=== PATIENT | female | born 1970 | race Caucasian/White ===

== ENCOUNTER 2024-12-15 08:14 | Outpatient (REF) | payer BC, SELFPAY ==
--- OUTSIDE RECORDS SUMMARY | 2024-12-15 14:36 | XMS_ITS | Clinical Summary ---
Author Organization [facility] Address [address] [place] [address] Phone Care Team Providers Care Dining Room Tables Set Up Attendant Name Role Phone Martha Hood MD Primary Care Provider [phone] Allergies No known active allergies Medications Medication [...] Care Team Description 11/29/2024 Telephone Adult Medicine [address] [phone] Martha Hood MD Referral from Last 3 [...] TEETH EXTRACTION OTHER SURGICAL HISTORY 11/08/2004 PROCEDURE: [place] EXC PRTD PRIYA/PRTD GLND LAT LOBE W/O [...] LIVER DZ Other: Paternal Grandmother 70'S , ?[place] Diabetes Sister 1 Other: cancer cerv Sister [...] LES * Hepatitis C Screening (01/07/2023) Pathologist [facility] Hepatitis C Screening Abstracted Historical Provider MD LOR Matias from Last 3 Months or Most Recently Relevant to Health Maintenance Care Teams Dining Room Tables Set Up Attendant Relationship Specialty Start Date End Date Martha Hood MD [address] [place] [address] PCP - General 07/06/24
--- OUTSIDE RECORDS SUMMARY | 2024-12-15 14:36 | XMS_ITS | Encounter Summary ---
Author Organization [facility] Address [address] [place] [address] Care Team Providers Care Executive Staff Assistant Name Role Phone Martha Hood MD Primary Care Provider [phone] Reason for Visit * Reason Onset Date Comments Referral 11/29/2024 Encounter Details Date Type Department Care Team ([facility] st Contact Info) Description 11/29/2024 Telephone Adult Medicine [facility] [address] [place] [address] Martha Hood MD [address] [place] [address] Referral Social History Tobacco Use Types Packs/Day [...] the patient have today? Payor: ERASMO VALENZUELA [facility] / Plan: [facility] HMO / Product Type: *No Product type* / Referrals cannot be processed if the insurance is not accurate. If the insurance listed above in red is NO BILLING INFORMATION FOUND FOR THIS ENCOUTNER The patients correct insurance must be obtained and registered in [facility] or their referral can not be processed. [...] this visit: Initial Visit Address of Specialist: [address] [place] [address] [place] Phone # of Specialist: [phone] Fax #: (if applicable): [phone] Does patient have an appointment scheduled?: yes Date of appointment- (including a retro-request): 09/26/24 Is this appointment related to: Not MVA, worker compensation, or surgery related documented in this encounter Plan of Treatment Not on file documented as of this encounter Visit Diagnoses Not on filedocumented in this encounter Care Teams Executive Staff Assistant Relationship Specialty Start Date End Date Martha Hood MD [address] [place] [address] PCP - General 07/06/24 documented as of this encounter
[2024-12-15 15:57] LABS: Influenza A PCR NEGATIVE (Negative); Influenza B PCR NEGATIVE (Negative); Resp Syncy Virus RNA Qual PCR NEGATIVE (Negative); SARS COV2 PCR INHOUSE NEGATIVE (Negative)
== END 2024-12-15 08:15 | disposition home or self-care (01) ==
LOC: HO.LNP 08:14
PROVIDERS: PCP Physician Assistant Medical; Visit Provider Nurse Practitioner Family
DX: R09.89 Other specified symptoms and signs involving the circulatory and respiratory systems (principal); R68.89 Other general symptoms and signs; R05.8 Other specified cough
CPT/HCPCS: 0241U

== ENCOUNTER → 2024-12-15 08:14 | Outpatient (AMB) ==
--- NOTE | 2024-12-15 08:25 | AM.OFFWIN_ITS ---
Intake Vital Signs 12/15/24 08:27 Height 5 ft 2 in Weight 204 lb BMI 37.3 BP 124/72 Blood Pressure Location Lt brachial Position Sitting Pulse 115 H Pulse Source Pulse Oximeter Temp 97.5 F Temp Source Oral Pulse Oximetry (%) 98 Oxygen Delivery Method Room Air Intake Visit Reasons: Sore throat Allergies No Known Allergies Allergy (Verified 12/15/24 08:28) Medication List - Last Reconciled 12/15/24 by LEW Drake No Known Home Meds HPI HPI Comments History of Present Illness Details Mayo Parada The patient is a 54-year-old female presenting with a sore throat and ear pain. She reports that the sore throat began on Wednesday night during a trip to [place] and intensified the following day with associated sputum. Initially, there was a brief period of relief, but the sore throat recurred and has become more severe than before. She has also experienced significant chills, generalized body aches, and a sensation of congestion, particularly in the right ear, which worsened during her flight home. There is pain on swallowing, and she has developed a cough. Home remedies tried include saltwater gargles and warm tea, providing only minimal relief. Upon returning from [place], the patient's ear congestion persisted despite the use of decongestants and antihistamines. She mentions being prone to ear congestion, particularly during flights, and had previously used earplugs to manage this, which were lost during travel. She does not have a history of asthma, smoking, or allergies to medications. The patient recently had a flu vaccination. Physical Exam General: Awake, alert. No apparent distress Eyes: Sclera and conjunctiva clear bilaterally Nose: Nares patent, turbinates within normal limits, no sinus tenderness with palpation bilaterally Ears: Bilat TM intact, erythematous, bulging loss of landmarks Throat: Moist mucosa membrane, pharynx mild erythema, no exudate, uvula midline Cardiovascular: Regular rate and rhythm, heart rate slightly elevated Respiratory: Clear to auscultation bilaterally, occassional dry cough, no distress Results - Nasopharyngeal swab for flu/covid/rsv: Negative Discussion Notes I discussed with the patient the possibility that her symptoms might stem from either a flu variant, common this time of year, or a bacterial origin necessitating antibiotic therapy. Given her 's upcoming surgery, I recommended a flu test and advised waiting for those results before initiating antibiotics. If the test confirms influenza, I proposed the use of antiviral medications and possible oral steroids for ear congestion. The patient was informed about the importance of notifying her 's medical team if she tests positive for the flu, as it might eventually impact his surgery. I suggested enrolling her in our patient portal for seamless communication regarding test results. A swab was taken, and I reiterated that we would follow up with treatment contingent on the results. Patient Instructions - Wait for flu test results before start ing antibiotics. - Enroll in the patient portal for wolf nual updates. - Inform her 's surgical team if she tests positive for the flu. - Follow up with the office through the patient portal for treatment directions. Plan In response to the acute pharyngitis and otitis media, I have taken a pragmatic approach by not starting antibiotics immediately, preferring instead to await the flu swab result. If a viral etiology such as influenza is confirmed, the pl an includes administering antiviral medication alongside systemic steroids to manage ear symptoms. Should the test result be negative, bacterial infection remains a differential diagnosis, and I would initiate an antibiotic regime accordingly. Preventative measures include ensuring no cross-exposure to her who is due for surgery, and this was communicated to the patient with the importance of acting on the results expeditiously. I've emphasized the utility of the patient portal for ongoing communications and timely updates on her health status. Patient was informed and verbally consented to the use of an ambient scribe for clinic note documentation during this visit. Total time spent caring for the patient today was 30 minutes. This includes time spent before the visit reviewing the chart, time spent during the visit, and time spent after the visit on documentation, reviewing laboratory results, diagnostic imaging, medications, performing a medically necessary evaluation, counseling on diagnoses, care coordination, ordering appropriate tests, ordering appropriate medications, review of tests performed by other providers, reporting test results with the patient, communication with other healthcare providers. Portal message sent to patient at 17:35 with negative viral swab results. Augmentin and prednisone were sent to the pharmacy. Physical Exam Vital Signs: Last Vital Signs Temp 97.5 F 12/15/24 08:27 Pulse 115 H 12/15/24 08:27 BP 124/72 12/15/24 08:27 Pulse Ox 98 12/15/24 08:27 Oxygen Delivery Method Room Air 12/15/24 08:27 BMI result Body Mass Index 37.3 Assessment & Plan Assessment & Plan (1) Flu-like symptoms: Code(s): R68.89 - Other general symptoms and signs (2) Otitis media: Code(s): H66.90 - Otitis media, unspecified, unspecified ear Qualifiers: Otitis media type: suppurative Chronicity: acute Laterality: bilateral Recurrence: non-recurrent Spontaneous tympanic membrane rupture: without spontaneous rupture Qualified Code(s): H66.003 - Acute suppurative otitis media without spontaneous rupture of ear drum, bilateral Plan . Orders: Orders SARS-CoV2/FLU/RSV Today R09.89 - Other specified symptoms and signs involving the circulatory and respiratory systems, R68.89 - Other general symptoms and signs Medications: New amoxicillin-pot clavulanate 875-125 mg 1 tab PO BID 7 days 14 tabs 0RF prednisone 20 mg PO DAILY 5 tabs 0RF Coding Level of Care Code Est Pt Level 4 (66858) Diagnoses Flu-like symptoms R68.89 Non-recurrent acute suppurative otitis media of both ears without spontaneous rupture of tympanic membranes H66.003 Otitis media type: suppurative Chronicity: acute Laterality: bilateral Recurrence: non-recurrent Spontaneous tympanic membrane rupture: without spontaneous rupture
--- OUTSIDE RECORDS SUMMARY | 2024-12-15 08:32 | XMS_ITS | Clinical Summary ---
Author Organization [facility] Address [address] [place] [address] Phone Care Team Providers Care Language Translator Name Role Phone Martha Hood MD Primary Care Provider Allergies No known active allergies Medications Medication Sig Dispensed Refills Start Date End Date Status atorvastatin (LIPITOR) 20 mg tablet Take 1 Tablet by mouth daily. 07/20/2024 Active clobetasoL (TEMOVATE) 0.05 % cream To affected area 2-3 times daily for no more than 2-3 weeks, then only using on the weekends prn 01/07/2023 Active desoximetasone (TOPICORT) 0.25 % cream Apply 1 Squirt topically 2 times daily. 07/03/2021 Active omeprazole (PriLOSEC) [address] capsule Take 1 Capsule by mouth daily. 07/20/2024 Active omeprazole OTC (PriLOSEC OTC) 20 mg EC tablet Take 1 Tab by mouth daily. 02/20/2015 Active ruxolitinib (Opzelura) 1.5 % cream Apply TWICE A DAY 12/17/2023 Active multivit-min/ferrous fumarate (MULTI VITAMIN ORAL) 1 tab po qd Active calcium carbonate (CALCIUM ORAL) 1 qd Active Active Problems Problem Noted Date Diagnosed Date Hypercholesteremia 07/20/2024 Shoulder tendinitis 12/08/2016 Acromioclavicular joint arthritis 12/08/2016 GERD (gastroesophageal reflux disease) 5 Migraine 06/05/2013 Overweight 09/20/2008 Resolved Problems Problem Noted Date Diagnosed Date Resolved Date S/P hysterectomy with oophorectomy 07/16/2017 10/25/2024 Encounters Date Type Department Care Team Description 11/29/2024 Telephone Adult Medicine [address] [phone] Martha Hood MD Referral from Last 3 Months Immunizations Name Administration Dates Next Due Influenza Quadravalent, MDCK , 0.5ml, preservative free (Flucelvax) 6mo and older 01/12/2024,09/13/2019 Influenza Quadravalent, MDCK , 0.5ml, with preservative (Flucelvax) 6mo and older 07/16/2017 Influenza trivalent, 0.5mL, preservative free (Fluarix; FluLaval; Fluzone) ages 6mo and older (Afluria) 3 years and older 07/20/2024,08/03/2016,09/06/2013,2011,09/20/2008 Influenza, Unspecified 09/19/2022 Moderna SARS-CoV-2 COVID-19, mRNA, LNP-S, preservative free 09/19/2022 Td Tetanus diptheria (Tdvax) 7yo and older 10/29/2003 Td, Unspecified 10/29/2003 Tdap Tetanus diptheria acell ular pertussis (Boostrix; Adacel) 7yo and older 01/07/2023,04/11/2012 Surgical History Surgery Date Site/Laterality Comments WISDOM TOOTH EXTRACTION PROCEDURE: HISTORICAL WISDOM TEETH EXTRACTION OTHER SURGICAL HISTORY 11/08/2004 PROCEDURE: WA EXC PRTD PRIYA/PRTD GLND LAT LOBE W/O NRV DSJ; COMMENT: LEFT PAROTID MASS-ADENOMA Medical History Medical History Date Comments Other specified personal his tory presenting hazards to health(V15.89) DX:Other specifie d personal history presenting hazards to health(V15.89) Family history of ovarian cancer 06/12/2011 DX:Family history of ovarian cancer GERD (gastroesophageal reflux disease) DX:GERD (gastroesophageal reflux disease) Family History Medical History Relation Name Comments CABG Father Diabetes Father Heart attack Father AGE 38 Hypertension Father CHF Heart attack Maternal Grandfather D 92; from MRSA infection Heart attack Maternal Grandmother D 88 Hypertension Mother Ovarian cancer Mother at age 7 2 Colon cancer Mother's side great aunt Diabetes Paternal Grandfather D 50'S, ? LIVER DZ Other: Paternal Grandmother 70'S , ?[place] Diabetes Sister 1 Other: cancer cerv Sister 2 at 4 5yo from liver failure, likely a result of cancer or its treatment Breast cancer Neg Hx Uterine cancer Neg Hx Relation Name Status Comments Father Alive Maternal Grandfather Maternal Grandmother Mother (Age 72) ovarian ca ncer age 72 Mother's side Paternal Grandfather Paternal Grandmother Sister 1 Sister 2 Sister 3 cervical cancer Social History Tobacco Use Types Packs/Day Years Used Date Smoking Tobacco: Never Smokeless Tobacco: Never Alcohol Use Standard Drinks/Week Comments Yes 0 (1 standard drink = 0.6 oz pur e alcohol) Sex and Gender Information Value Date Recorded Sex Assigned at Not on file Gender Identity Not on file Sexual Orientation Not on file Obstetrics History Last Filed Vital Signs Vital Sign Reading Time Taken Comments Blood Pressure 134/88 07/20/2024 9:24 AM EDT Pulse 76 07/20/2024 9:24 AM EDT Temperature - - Respiratory Rate - - Oxygen Saturation - - Inhaled Oxygen Concentration - - Weight 93.5 kg (206 lb 3.2 oz) 07/20/2024 9:24 A M EDT Height 157.5 cm (5' 2 ) 07/20/2024 9:24 AM EDT Body Mass Index 37.71 07/20/2024 9:24 AM EDT Plan of Treatment Health Maintenance Due Date Last Done Comments Breast Cancer Screening 1970 Hepatitis B Vaccines (1 of 3 - 19+ 3-dose series) 1989 Zoster Vaccines (1 of 2) 2020 Colorectal Cancer Screening: Colonoscopy 10/17/2022 Depression Screening 10/17/2022 HIV Screening 10/17/2022 Social Influencers of Health Screening 10/17/2022 COVID-19 Vaccine ( season) 2024 09/19/2022, 03/31/2021, 03/03/2021 Cholesterol Screening (Lipid Panel) 07/20/2029 07/20/2024, 07/20/2024 DTaP,Tdap,and Td Vaccines (5 - Td or Tdap) 01/07/2033 01/07/2023, 04/11/2012, 10/29/2003, Additional history exists Hepatitis C Screening Completed 01/07/2023 Influenza Vaccine Completed 07/20/2024, , 09/19/2022, Additional history exists HIB Vaccines Aged Out No longer eligi ble based on patient's age to complete this topic HPV Vaccines Aged Out No longer eligi ble based on patient's age to complete this topic Hepatitis A Vaccines Aged Out No long er eligible based on patient's age to complete this topic IPV Vaccines Aged Out No longer eligi ble based on patient's age to complete this topic MMR Vaccines Aged Out No longer eligi ble based on patient's age to complete this topic Meningococcal ACWY Vaccine Aged Out N o longer eligible based on patient's age to complete this topic Pneumococcal Vaccine: Pediatrics (0 to 5 Years) and At-Risk Patients (6 to 64 Years) Aged Out No longer eligible based on patient's age to complete this topic RSV Immunization Patients Under 20 months Aged Out No longer eligible based on patient's age to complete this topic Varicella Vaccines Aged Out No longer eligible based on patient's age to complete this topic Procedures Procedure Name Priority Date/Time Associated Diagnosis Comments LIPID PANEL Routine 07/20/2024 HEPATITIS C SCREENING Routine 01/07/2023 from Last 3 Months or Most Recently Relevant to Health Maintenance Results * (ABNORMAL) Lipid panel (07/20/2024) LDL/HDL Ratio 4 0 - 4 Triglycerides 144 0 - 150 mg/dL Cholesterol 225(A) 0 - 200 mg/dL HDL 65 40 mg/dL LDL Cholesterol 132(A) 0 - 100 mg/dL Blood Venous blood specimen / Unknown Historical Provider LAB BLOOD ORDERAB LES * Hepatitis C Screening (01/07/2023) Pathologist [facility] Hepatitis C Screening Abstracted Historical Provider MD LOR Matias from Last 3 Months or Most Recently Relevant to Health Maintenance Care Teams Language Translator Relationship Specialty Start Date End Date Martha Hood MD [address] [place] [address] PCP - General 07/06/24
--- OUTSIDE RECORDS SUMMARY | 2024-12-15 08:32 | XMS_ITS | Encounter Summary ---
Author Organization [facility] Address [address] [place] [address] Care Team Providers Care Garnetter Name Role Phone Martha Hood MD Primary Care Provider [phone] Reason for Visit * Reason Onset Date Comments Referral 11/29/2024 Encounter Details Date Type Department Care Team ([facility] st Contact Info) Description 11/29/2024 Telephone Adult Medicine [facility] [address] [place] [address] Martha Hood MD [address] [place] [address] Referral Social History Tobacco Use Types Packs/Day Years Used Date Smoking Tobacco: Never Smokeless Tobacco: Never Alcohol Use Standard Drinks/Week Comments Yes 0 (1 standard drink = 0.6 oz pur e alcohol) Sex and Gender Information Value Date Recorded Sex Assigned at Not on file Gender Identity Not on file Sexual Orientation Not on file documented as of this encounter Progress Notes * Yumiko Corbett - 11/29/2024 3:23 PM EST Referral Request: What insurance does the patient have today? Payor: ERASMO VALENZUELA [facility] / Plan: [facility] HMO / Product Type: *No Product type* / Referrals cannot be processed if the insurance is not accurate. If the insurance listed above in red is NO BILLING INFORMATION FOUND FOR THIS ENCOUTNER The patients correct insurance must be obtained and registered in [facility] or their referral can not be processed. Is this a retro request? yes If yes for what date of service do you need the retro referral? 09/26/24 Who is calling to request this referral? [facility] If the caller is not the patient, what is their name? agnes Ask the patient WHO referred them to this specialty: Patient self referred FIRST and LAST NAME of SPECIALIST PATIENT is seeing: Freddy Abdi What specialty is this? Optemology DIAGNOSIS Patient is being seen for (Not a body part or a procedure): 40.013 Have you seen this SPECIALIST for this PROBLEM/DX before? If YES, when? No Have you checked REVIEW or the APPT DESK to see if this referral has already been done or has visits left? yes Is this visit: Initial Visit Address of Specialist: [address] [place] [address] [place] re[place] Phone # of Specialist: [phone] Fax #: (if applicable): [phone] Does patient have an appointment scheduled?: yes Date of appointment- (including a retro-request): 09/26/24 Is this appointment related to: Not MVA, worker compensation, or surgery related documented in this encounter Plan of Treatment Not on file documented as of this encounter Visit Diagnoses Not on filedocumented in this encounter Care Teams Garnetter Relationship Specialty Start Date End Date Martha Hood MD [address] [place] [address] PCP - General 07/06/24 documented as of this encounter
== END | disposition home or self-care (01) ==

== ENCOUNTER 2024-12-18 11:56 | Outpatient (AMB) | payer BC, SELFPAY ==
[2024-12-18 12:02] VITALS: BP 136/88; PULSE 85; O2SAT 95; BMI 37.9
--- NOTE | 2024-12-18 12:02 | MHC.PC.OV ---
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 She transferred from [facility]. Records transfer still pending. The patient was seen at the walk-in on 12/15/2024. Influenza/RSV/COVID swab negative. Patient currently Augmentin and prednisone for otitis media. This all started after she flew back from [place], and she said she was congested before travel. She usually uses a device that blocks her ears, but she lost it during travel. She initially reported hearing was muffled, but this has since resolved. Her ears are still heard a and congested, but she feels a little better since starting the medications 3 days ago. She has no fevers, chills, hearing loss, dizziness, vision changes or headache. She is treated for GERD with omeprazole 20 mg daily. Symptoms return if she does not take this medication. She wants to try to work on weight loss to reduce symptoms. She takes 20 mg of atorvastatin for hyperlipidemia. LDL cholesterol in 07/28/2024 was 132. There is a strong family history of heart disease on her father's side of the family. She does not smoke. She has not been able to exercise due to chronic right ankle pain. She broke her ankle and dislocated it in 2017. She was seen by [facility]. She has hardware in her ankle. She has had progressively worsening pain described as singing and aching when she is walking, standing and using stairs. She also has intermittent swelling on the inside and outside of the ankle at improves when she uses topical CBD products. She tries not to take Tylenol and Advil. There is no numbness or tingling or weakness reported. She has tried to exercise as tolerated and follow a healthy diet, but she has not been able to lose weight successfully over the past year. Denies history of diabetes/prediabetes and thyroid disease. She would like to try GLP 1. She is due for mammogram. Order placed. She had a colonoscopy in the fall of 2023, and she reports there were a few polyps, and she was told to repeat it in 5 years. She is status post total hysterectomy. She would still like to see ship's electronic warfare officer for vaginal and breast exams. She is going to call Dr. Umana's office, and I placed a referral. Her last annual physical exam was in 07/28/2024. ROS: Constitutional: No unexplained weight loss, fever, chills, fatigue or night sweats. Eyes: No vision changes, blurry vision, double vision, eye pain, eye redness, eye discharge. ENT: No hearing loss, sinus pain, sinus congestion, sore throat. See HPI Respiratory: No shortness of breath or wheezing. +cough. No sputum production. Cardiovascular: No chest pain, chest pressure or chest discomfort. No palpitations. Gastrointestinal: No anorexia, nausea, vomiting or diarrhea. No abdominal pain or blood in stool. Neurologic: No weakness, ataxia, numbness or tingling in the extremities. Musculoskeletal: See HPI Skin: No rash, ecchymosis or bruising. Endocrine: No cold or heat intolerance. No polyuria or polydipsia. Psychiatric: No depression or anxiety. No SI/HI. Physical exam: Constitutional: Alert, in no distress. Eyes: Pupils are equal, round and reactive to light. Extraocular muscles intact. Ear, Nose and Throat: Canals clear. The TMs are hyperemic and dull. There is a small serous fluid bubble at the base of the right TM. There is no left TM effusion. The TMs are intact. Normal nasal mucosa. No nasal discharge. No oropharyngeal erythema, exudates or lesions. Mastoids nontender. Negative tug test bilaterally. Neck: Supple, Full range of motion. No lymphadenopathy. Respiratory: Clear to auscultation. Cardiovascular: S1 S2 regular. No murmurs Skin: No rash Ankles: Full range of motion bilaterally. Strength 5/5 bilaterally. There is mild swelling around the lateral and medial malleoli of the right ankle, and these areas are mildly tender to palpation. Gait is normal. No ecchymosis or erythema. Extremities: Warm and well perfused. No clubbing, cyanosis or edema. 3+ peripheral pulses bilaterally. Psychiatric: Normal mood and affect [facility] Medical History (Updated 12/18/24 @ 13:42 by JOVITA Crowley) Colon polyps GERD (gastroesophageal reflux disease) Obesity (BMI 35.0-39.9 without comorbidity) Right ankle pain Pure hypercholesterolemia Screening for cardiovascular condition Surgical History (Updated 12/18/24 @ 12:11 by Coco Teresa CMA) H/O total hysterectomy with bilateral salpingo-oophorectomy (BSO) (~2017) History of wisdom tooth extraction Family History (Updated 12/18/24 @ 12:16 by Coco Teresa CMA) Mother Ovarian cancer Sister Cervical cancer Paternal Grandfather Diabetes Maternal Grandmother Heart attack Maternal Grandfather Heart attack MRSA infection Maternal Grandmother Colon cancer Father Congestive heart failure Social History (Updated 12/18/24 @ 12:17 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 1. Little interest or pleasure in doing things: not at all 2. Feeling down, depressed, or hopeless: not at all 3. Trouble falling or staying asleep, or sleeping too much: not at all 4. Feeling tired or having little energy: not at all 5. Poor appetite or overeating: not at all 6. Feeling bad about yourself - or that you are a failure or have let yourself or your family down: not at all 7. Trouble concentrating on things, such as reading the newspaper or watching television: not at all 8. Moving or speaking so slowly that other people could have noticed. Or the opposite - being so fidgety or restless that you have been moving around a lot more than usual: not at all 9. Thoughts that you would be better off or of hurting yourself in some way: not at all Total score: 0 Depression Screening Interpretation: Negative Depression Screening Done: Yes 11799 - PHQ-9 Billing: Yes Source: Developed by Drs. Mina Collado, Renata Andre, Faraz Armijo and colleagues, with an educational adeola from [employer]. Thrive Questionnaire Date Thrive assessed: 12/18/24 I am a: Patient What is your living situation today?: I have a steady place to live Within the past 12 months, did the food you bought not last and you didn't have the money to get more?: Never true Within the past 12 months, did you worry whether your food would run out before you got money to buy more?: Never true Do you have trouble paying for medicines?: No Do you have trouble getting transportation to medical appointments?: No Do you have trouble paying your heating and electricity bill?: No Do you have trouble taking care of your child, family member or friend?: No Do you have trouble with day-to-day activities such as bathing, preparing meals, shopping, managing finances, etc.?: No Are you currently unemployed and looking for a job?: No Are you interested in more education?: No Please select the resources that you would like help with: None Currently or been in a relationship where the following occur: No concerns reported THRIVE Score: 0 AUDIT C Alcohol Use Questionnaire (AUDIT-C) 1. How often do you have a drink containing alcohol?: Monthly or less 2. How many drinks containing alcohol do you have on a typical day when you are drinking?: 1 or 2 3. How often do you have six or more drinks on one occasion?: Never Total Score: 1 DESHAWN-7 AMB Questionnaire DESHAWN-7 Date DESHAWN - 7 assessed: 12/18/24 Feeling nervous, anxious, or on edge: 0 = Not at all Not being able to stop or control worryin = Not at all Worrying too much about different things: 0 = Not at all Trouble relaxin = Not at all Being so restless that it is hard to sit still: 0 = Not at all Becoming easily annoyed or irritable: 0 = Not at all Feeling afraid as if something awful might happen: 0 = Not at all Total DESHAWN-7 score (0-4 normal; 5-9 mild; 10-14 moderate; 15-21 severe): 0 Source: Developed by Drs. Mina Collado, Renata Andre, Faraz Armijo and colleagues, with an educational adeola from [employer]. DESHAWN-7 Assessment Billing DESHAWN-7 Assessment Tool: DESHAWN-7 Assessment 56611 Physical exam (Primary Care) Vital Signs: Last Vital Signs Pulse 85 12/18/24 12:02 BP 136/88 12/18/24 12:02 Pulse Ox 95 12/18/24 12:02 Oxygen Delivery Method Room Air 12/18/24 12:02 BMI result Body Mass Index 37.9 Tobacco/Smoking Status: Tobacco use Status Tobacco use date assessed 12/18/24 12/18/24 12:18 Patient Tobacco Use Status Never used Tobacco 12/18/24 12:18 e-Cigarette/Vaping Use Never Used 12/18/24 12:18 PHQ-9: PHQ-9 Score PHQ-9: Total score 0 12/18/24 12:18 Depression Screening Interpretation: Negative Thrive Assessment: Date of Thrive Assessment Date Thrive assessed 12/18/24 12/18/24 12:18 Currently or been in a relationship where the following occur: No concerns reported Coding Level of Care Code Est Pt Level 5 (10843) Complex EM visit Add On G2211 Diagnoses Non-recurrent acute suppurative otitis media of both ears without spontaneous rupture of tympanic membranes H66.003 Otitis media type: suppurative Chronicity: acute Laterality: bilateral Recurrence: non-recurrent Spontaneous tympanic membrane rupture: without spontaneous rupture Pure hypercholesterolemia E78.00 Obesity (BMI 35.0-39.9 without comorbidity) E66.9 Right ankle pain M25.571 Additional Codes DESHAWN-7 Assessment Billing - DESHAWN-7 Assessment Tool: DESHAWN-7 Assessment 01139 ([id number]) PHQ-9 - 32975 - PHQ-9 Billing: Yes ([id number]) Time Spent (min) 55 Comment Direct patient care and completing chart Assessment & Plan Assessment & Plan (1) Otitis media: Code(s): H66.90 - Otitis media, unspecified, unspecified ear Category: Medical Qualifiers: Otitis media type: suppurative Chronicity: acute Laterality: bilateral Recurrence: non-recurrent Spontaneous tympanic membrane rupture: without spontaneous rupture Qualified Code(s): H66.003 - Acute suppurative otitis media without spontaneous rupture of ear drum, bilateral Plan: Complete courses of prednisone and Augmentin. Use cool mist humidifier, rest and increase fluids. Patient asked to call if she experiences any hearing loss or worsening symptoms. If symptoms do not resolve following treatment she was instructed to call the office. (2) Pure hypercholesterolemia: Code(s): E78.00 - Pure hypercholesterolemia, unspecified Category: Medical Plan: Check lipid profile to determine if dose of atorvastatin needs to be adjusted. Recommended Mediterranean diet, avoid tobacco use, avoid excessive alcohol. She is working on weight loss. (3) Obesity (BMI 35.0-39.9 without comorbidity): Code(s): E66.9 - Obesity, unspecified Category: Medical Plan: Patient has not been able to lose weight despite implementing lifestyle modifications for over 3 months, and she has a history of hyperlipidemia and BMI of 37.9 today. We reviewed contraindications and side effects of GLP 1 medications. She would like to try it. Patient was advised to contact her insurance to see if they cover Zepbound for weight loss. If they do she will let me know so that I can submit the prescription, and she was advised it will require prior authorization. (4) Right ankle pain: Code(s): M25.571 - Pain in right ankle and joints of right foot Category: Medical Plan: Chronic right ankle pain with history of trauma and surgery in 2017. Referred back to [facility] for re-evaluation. Plan Follow up in 3 months for medication review. Orders: Orders TSH reflex Free T4 Today E66.9 - Obesity, unspecified, E78.00 - Pure hypercholesterolemia, unspecified, Z13.6 - Encounter for screening for cardiovascular disorders Comprehensive Met. Panel Today E66.9 - Obesity, unspecified, E78.00 - Pure hypercholesterolemia, unspecified, Z13.6 - Encounter for screening for cardiovascular disorders MM screening mammo BI Today Z12.31 - Encounter for screening mammogram for malignant neoplasm of breast Lipid Panel Today E66.9 - Obesity, unspecified, E78.00 - Pure hypercholesterolemia, unspecified, E78.5 - Hyperlipidemia, unspecified, Z13.6 - Encounter for screening for cardiovascular disorders Referrals INTERNAL CONSULTANT Referral Z00.00 - Encounter for general adult medical examination without abnormal findings Orthopedics Referral M25.571 - Pain in right ankle and joints of right foot Medications: New atorvastatin 20 mg PO DAILY 90 tabs 3RF
--- OUTSIDE RECORDS SUMMARY | 2024-12-18 13:12 | XMS_ITS | Clinical Summary ---
Author Organization [facility] Address [address] [place] [address] Phone Care Team Providers Care Billing And Accounting Staff Assistant Name Role Phone Martha Hood MD Primary Care Provider Allergies No known active allergies Medications atorvastatin (LIPITOR) 20 mg tablet Take 1 Tablet by mouth daily. 4 Active clobetasoL (TEMOVATE) 0.05 % cream To affected area 2-3 times daily for no more than 2-3 weeks, then only using on the weekends prn 3 Active desoximetasone (TOPICORT) 0.25 % cream Apply 1 Squirt topically 2 times daily. 1 Active omeprazole (PriLOSEC) [address] capsule Take 1 Capsule by mouth daily. 4 Active omeprazole OTC (PriLOSEC OTC) 20 mg EC tablet Take 1 Tab by mouth daily. 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 GERD (gastroesophageal reflux disease) 5 Migraine 06/05/2013 Overweight 09/20/2008 Resolved Problems Problem Noted Date Diagnosed Date Resolved Date S/P hysterectomy with oophorectomy 07/16/2017 10/25/2024 Encounters Date Type Department Care Team Description 11/29/2024 Telephone Adult Medicine [address] [address] Martha Hood MD Referral from Last 3 [...] TEETH EXTRACTION OTHER SURGICAL HISTORY 11/08/2004 PROCEDURE: NV EXC PRTD PRIYA/PRTD GLND LAT LOBE W/O [...] LIVER DZ Other: Paternal Grandmother 70'S , ?[place] Diabetes Sister 1 Other: cancer cerv Sister [...] drink = 0.6 oz pur e alcohol) Comments Unknown Sex and Gender Information Value Date Recorded Sex Assigned at Not on file Legal Sex Female 11:26 AM EST Gender Identity Not on file Sexual Orientation [...] of 3 - 19+ 3-dose series) 1989 Pneumococcal Vaccine: 50+ Years (1 of 1 - PCV) 2020 Zoster Vaccines (1 of 2) 2020 Colorectal Cancer Screening: Colonoscopy 10/17/2022 Depression Screening 10/17/2022 HIV Screening 10/17/2022 Social Influencers of Health Screening 10/17/2022 COVID-19 Vaccine ( season) 2024 09/19/2022, 03/31/2021, 03/03/2021 Cholesterol Screening (Lipid Panel) 07/20/2029 07/20/2024, 07/20/2024 DTaP,Tdap,and Td Vaccines (4 - Td or Tdap) 01/07/2033 01/07/2023, 04/11/2012, [...] patient's age to complete this topic Meningococcal B Vacine Aged Out No lo nger eligible based on patient's age to complete [...] 225(A) 0 - 200 mg/dL HDL 65 >=40 mg/dL LDL Cholesterol 132(A) 0 - 100 mg/dL Blood Venous blood specimen / Unknown Historical Provider LAB BLOOD ORDERABLES Carolyn l Result * Hepatitis C Screening (01/07/2023) Pathologist On license of [facility] Hepatitis C Screening Abstracted us Historical Provider HEALTH MAINTENANCE Final Result from Last 3 Months or Most Recently Relevant to Health Maintenance Insurance [facility] Care Teams Billing And Accounting Staff Assistant Relationship Specialty Start Date End Date Martha Hood MD [address] [place] [address] PCP - General 07/06/24
--- OUTSIDE RECORDS SUMMARY | 2024-12-18 13:12 | XMS_ITS | Encounter Summary ---
Author Organization [facility] Address [address] [place] [address] Care Team Providers Care Bench Inspector Name Role Phone Martha Hood MD Primary Care Provider [phone]- [phone] Reason for Visit * Reason Onset Date Comments Referral 11/29/2024 Encounter Details Date Type Department Care Team ([facility] st Contact Info) Description 11/29/2024 Telephone Adult Medicine [facility] [address] [place] [address] Martha Hood MD [address] [place] [address] Referral Social History Tobacco Use Types Packs/Day [...] of this encounter Progress Notes * Yumiko Colon - 11/29/2024 3:23 PM EST Referral Request: What insurance does the patient have today? Payor: ERASMO VALENZUELA - [place] / Plan: [facility] HMO / Product Type: *No Product type* / Referrals cannot be processed if the insurance is not accurate. If the insurance listed above in red is NO BILLING INFORMATION FOUND FOR THIS ENCOUTNER The patients correct insurance must be obtained and registered in [facility] or their referral can not be processed. [...] this visit: Initial Visit Address of Specialist: [address] [place] [address] [place] Phone # of Specialist: [phone] Fax #: (if applicable): [phone] Does patient have an appointment scheduled?: yes Date of appointment- (including a retro-request): 09/26/24 Is this appointment related to: Not MVA, worker compensation, or surgery related documented in this encounter Plan of Treatment Not on file documented as of this encounter Visit Diagnoses Not on filedocumented in this encounter Care Teams Bench Inspector Relationship Specialty Start Date End Date Martha Hood MD [address] [place] [address] PCP - General 07/06/24 documented as of this encounter
== END 2024-12-18 13:01 | disposition home or self-care (01) ==
PROVIDERS: PCP Physician Assistant Medical; Visit Provider Physician Assistant Medical
DX: E78.00 Pure hypercholesterolemia, unspecified (principal); H66.003 Acute suppurative otitis media without spontaneous rupture of ear drum, bilateral; E66.9 Obesity, unspecified; Z68.37 Body mass index [BMI] 37.0-37.9, adult; M25.571 Pain in right ankle and joints of right foot

== ENCOUNTER → 2024-12-18 11:56 | Outpatient (BNVA) | payer BC, SELFPAY | PROVIDERS: PCP Physician Assistant Medical; Visit Provider Physician Assistant Medical | DX: E78.5 Hyperlipidemia, unspecified (principal); E66.9 Obesity, unspecified; H66.003 Acute suppurative otitis media without spontaneous rupture of ear drum, bilateral; E78.00 Pure hypercholesterolemia, unspecified; M25.571 Pain in right ankle and joints of right foot; Z68.37 Body mass index [BMI] 37.0-37.9, adult | CPT/HCPCS: 96127 ==

== ENCOUNTER 2025-01-05 14:08 | Outpatient (REF) | payer BC, SELFPAY ==
--- OUTSIDE RECORDS SUMMARY | 2025-01-05 16:19 | XMS_ITS | Encounter Summary ---
Author Organization [facility] Address [address] [place] [address] Care Team Providers Care Track Patrol Name Role Phone Mirela Verduzco MD Primary Care Provider [phone]- [phone] Reason for Referral * Consultation (Routine) - Pending Review Specialty Diagnoses / Procedures Referred By Leena hussein Referred To Contact Optometry Diagnoses Eye exam, routine Mirela Verduzco MD [address] [place] [address] Phone: tel: fax: Freddy Abdi, OD [address] [facility] [address] [place] [address] Phone: tel: fax: Referral ID Status Reason Start Date Expiration Date Visits Requested Visits Authorized [id number] Pending Review Specialty Services Required 12/21/2024 12/21/2025 1 1 Reason for Visit * Reason Onset Date Comments Referral 11/29/2024 Encounter Details Date Type Department Care Team (Late st Contact Info) Description 11/29/[address] [facility] [address] [place] [address] Mirela Verduzco MD [address] [place], [place] Referral Social History Tobacco Use Types Packs/Day [...] as of this encounter Progress Notes * Mirela Verduzco MD - 12/21/2024 12:24 PM ESTAddended by: MIRELA VERDUZCO on: 12/21/2024 12:24 PM Modules accepted: Orders * Yumiko Corbett - 11/29/2024 3:23 PM EST Referral Request: What insurance does the patient have today? Payor: ERASMO Sy [place] / Plan: [facility] HMO / Product Type: *No Product type* / Referrals cannot be processed if the insurance is not accurate. If the insurance listed above in red is NO BILLING INFORMATION FOUND FOR THIS ENCOUTNER The patients correct insurance must be obtained and registered in [facility] or their referral can not be processed. Is this a retro request? yes If yes for what date of service do you need the retro referral? 09/26/24 Who is calling to request this referral? [facility] If the caller is not the patient, what is their name? oleen Ask the patient WHO referred them to [...] this visit: Initial Visit Address of Specialist: [address] [place] [address] [place] Phone # of Specialist: [phone] Fax #: (if applicable): [phone] Does patient have an appointment scheduled?: yes Date of appointment- (including a retro-request): 09/26/24 Is this appointment related to: Not MVA, worker compensation, or surgery related documented in this encounter Plan of Treatment Scheduled Referrals Name Type Priority Associated Diagnoses Order Schedule Ambulatory referral to Ophthalmology Outpatient Referral Routine Eye exam, routine 1 Occurrences starting 12/21/2024 until 12/21/2025 documented as of this encounter Visit Diagnoses Diagnosis Eye exam, routine- Primary documented in this encounter Care Teams Track Patrol Relationship Specialty Start Date End Date Mirela Verduzco MD [address] [place] [address] PCP - General 07/06/24 documented as of this encounter
--- OUTSIDE RECORDS SUMMARY | 2025-01-05 16:19 | XMS_ITS | Clinical Summary ---
Author Organization [facility] Address [address] [place] [address] Phone Care Team Providers Care Plug Cutting Machine Operator Name Role Phone Martha Hood MD Primary [...] Care Team Description 11/29/2024 Telephone Adult Medicine [address] [address] Martha Hood MD Referral from [...] TEETH EXTRACTION OTHER SURGICAL HISTORY 11/08/2004 PROCEDURE: RI EXC PRTD PRIYA/PRTD GLND LAT LOBE W/O [...] LIVER DZ Other: Paternal Grandmother 70'S , ?[place] Diabetes Sister 1 Other: cancer cerv Sister [...] Result * Hepatitis C Screening (01/07/2023) Pathologist [facility] Hepatitis C Screening Abstracted us Historical Provider HEALTH MAINTENANCE Final Result from Last 3 Months or Most Recently Relevant to Health Maintenance Insurance [facility] Care Teams Plug Cutting Machine Operator Relationship Specialty Start Date End Date Martha Hood MD [address] [place] [address] PCP - General 07/06/24
[2025-01-05 18:19] LABS: Alanine Aminotransferase 41 U/L (0-31); Albumin Level 4.2 g/dL (3.5-5.0); Alkaline Phosphatase 86 U/L (39-117); Anion Gap 13 (12-20); Aspartate Amino Transferase 27 U/L (5-31); Bilirubin Total 0.5 mg/dL (0.0-1.0); Blood Urea Nitrogen 13 mg/dL (9-16); Calcium 9.5 mg/dL (8.4-10.2); Carbon Dioxide 24 mmol/L (22-29); Chloride 105 mmol/L (96-108); Cholesterol 209 mg/dL (<200); Estimated Glomerular Filt Rate > 60; Glucose Random 88 mg/dL (60-115); HDL Cholesterol 62 mg/dL (>40); LDL Cholesterol Calculated 127 mg/dL (<100); Potassium 3.8 mmol/L (3.3-5.1); Sodium 138 mmol/L (135-145); Total Protein 7.9 g/dL (6.5-8.0); Triglycerides 102 mg/dL (<150)
[2025-01-05 18:35] LABS: TSH reflex Free T4 1.21 uIU/mL (0.32-4.0)
== END 2025-01-05 14:09 | disposition home or self-care (01) ==
LOC: HO.WFDLDS 14:08
PROVIDERS: Visit Provider Physician Assistant Medical
DX: E78.00 Pure hypercholesterolemia, unspecified (principal); E78.5 Hyperlipidemia, unspecified; E66.9 Obesity, unspecified; Z13.6 Encounter for screening for cardiovascular disorders
CPT/HCPCS: 36415; 80053; 80061; 84443

== ENCOUNTER 2025-01-29 15:14 | Outpatient (REF) | payer BC, SELFPAY ==
--- OUTSIDE RECORDS SUMMARY | 2025-01-29 18:05 | XMS_ITS | Clinical Summary ---
Author Organization [facility] Address [address] [place] [address] Phone Care Team Providers Care Tearoom Hostess Name Role Phone Martha Hood MD Primary [...] Care Team Description 11/29/2024 Telephone Adult Medicine [address] [address] Martha Hood MD Referral from [...] TEETH EXTRACTION OTHER SURGICAL HISTORY 11/08/2004 PROCEDURE: DC EXC PRTD PRIYA/PRTD GLND LAT LOBE W/O [...] LIVER DZ Other: Paternal Grandmother 70'S , ?[place] Diabetes Sister 1 Other: cancer cerv Sister [...] C Screening (01/07/2023) Pathologist [facility] Hepatitis C Screening Abstracted us Historical Provider HEALTH MAINTENANCE Final Result from Last 3 Months or Most Recently Relevant to Health Maintenance Insurance [facility] Care Teams Tearoom Hostess Relationship Specialty Start Date End Date Martha Hood MD [address] [place] [address] PCP - General 07/06/24
== END 2025-01-29 15:15 | disposition home or self-care (01) ==
LOC: HO.MAMMO 15:14
PROVIDERS: PCP Physician Assistant Medical; Visit Provider Physician Assistant Medical
DX: Z12.31 Encounter for screening mammogram for malignant neoplasm of breast (principal)
CPT/HCPCS: 77063; 77067

== ENCOUNTER → 2025-01-29 15:30 | Outpatient (BNV) | payer BC, SELFPAY | PROVIDERS: PCP Physician Assistant Medical; Visit Provider Internal Medicine | DX: Z12.31 Encounter for screening mammogram for malignant neoplasm of breast (principal) | CPT/HCPCS: 77063; 77067 ==

== ENCOUNTER 2025-03-16 14:12 | Outpatient (REF) | payer BC, SELFPAY ==
--- OUTSIDE RECORDS SUMMARY | 2025-03-16 14:14 | XMS_ITS | Encounter Summary ---
Author Organization [facility] Address [address] [place] [address] Care Team Providers Care Oyster Farmer Name Role Phone Sanjuanita Bhandari MD Primary Care Provider Un available Zehra Evans DO Primary Care Provider Unavaila ble Martha Hood MD Primary Care Provider [phone] Encounter Details Date Type Department Care Team Description 05/26/2012 Storage Engineer Report Medical Records [address] [place] [address] Misael Hernandez Social History Tobacco Use Types Packs/Day Years Used Date Smoking Tobacco: Never Smokeless Tobacco: Never Alcohol Use Standard Drinks/Week Comments Yes 0 (1 standard drink = 0.6 oz pur e alcohol) occasional, social Sex Assigned at Date Recorded Not on file Job Start Date Occupation Industry Not on file Not on file Not on file documented as of this encounter Plan of Treatment Not on file documented as of this encounter Visit Diagnoses Not on filedocumented in this encounter Care Teams Oyster Farmer Relationship Specialty Start Date End Date Sanjuanita Bhandari MD PCP - General 09/26/07 03/25/22 Zehra Evans DO PCP - General Internal Medicine 03/26/22 07/05/24 Martha Hood MD [address] [place] [address] PCP - General Internal Medicine 07/06/24 documented as of this encounter
--- OUTSIDE RECORDS SUMMARY | 2025-03-16 14:14 | XMS_ITS | Encounter Summary ---
Author Organization [facility] Address [address] [place] [address] Care Team Providers Care Exhibition Carver Name Role Phone Sanjuanita Bhandari MD Primary Care Provider Un available Zehra Evans DO Primary Care Provider Unavaila ble Martha Hood MD Primary Care Provider [phone] Encounter Details Date Type Department Care Team Description 05/15/2019 Blueprint Reproducer Report Medical Records [address] [place] [address] Yusuf Greene MD Social History Tobacco Use Types Packs/Day Years Used Date Smoking Tobacco: Never Smokeless Tobacco: Never Alcohol Use Standard Drinks/Week Comments Yes 0 (1 standard drink = 0.6 oz pur e alcohol) 2-3 drinks/mo Sex Assigned at Date Recorded Not on file Job Start Date Occupation Industry Not on file Not on file Not on file documented as of this encounter Plan of Treatment Not on file documented as of this encounter Visit Diagnoses Not on filedocumented in this encounter Care Teams Exhibition Carver Relationship Specialty Start Date End Date Sanjuanita Bhandari MD PCP - General 09/26/07 03/25/22 Zehra Evans DO PCP - General Internal Medicine 03/26/22 07/05/24 Martha Hood MD [address] [place] [address] [id number] PCP - General Internal Medicine 07/06/24 documented as of this encounter
--- OUTSIDE RECORDS SUMMARY | 2025-03-16 14:14 | XMS_ITS | Encounter Summary ---
Author Organization [facility] Address [address] [place] [address] Care Team Providers Care Sourcing Intern Name Role Phone Zehra Evans DO Primary Care Provider Martha Hernandez MD Primary Care Provider [phone] Encounter Details Date Type Department Care Team Description 10/20/2023 Orders Only Medical Records [address] [place] [address] Lissette Luna MD [address] [place] [address] Social History Tobacco Use Types Packs/Day Years Used Date Smoking Tobacco: Never Smokeless Tobacco: Never Alcohol Use Standard Drinks/Week Comments Yes 0 (1 standard drink = 0.6 oz pur e alcohol) 2-3 drinks/mo Sex Assigned at Date Recorded Not on file Job Start Date Occupation Industry Not on file Not on file Not on file documented as of this encounter Progress Notes * Gwen Luna MD - 11/02/2023 10:28 AM EST Dear Nuvia, The polyp(s) that were removed during your colonoscopy were precancerous, but benign. Fortunately, we removed them and therefore, they will not cause any more problems in the future. Based on the number, the size, and the features of the polyp(s) removed, I recommend a follow-up colonoscopy in 5 years. Before, the 5 years are due, we will send you a reminder in the mail asking you to contact our office to have the colonoscopy scheduled. I would like to personally thank you for allowing us to take care of you. Please don't hesitate to call us for any questions or concerns. Regards, Elissa Luna MD Board Certified Gastroenterology and Internal Medicine Transplant Hepatology [facility] documented in this encounter Plan of Treatment Not on file documented as of this encounter Procedures Procedure Name Priority Date/Time Associated Diagnosis Comments OUTSIDE COLONOSCOPY Routine 10/18/2023 OUTSIDE PATHOLOGY Routine 10/18/2023 documented in this encounter Results * OUTSIDE COLONOSCOPY (10/18/2023) Lissette Luna MD RADIOLOGY * OUTSIDE PATHOLOGY (10/18/2023) Lissette Luna MD OUTSIDE LAB documented in this encounter Visit Diagnoses Not on filedocumented in this encounter Care Teams Sourcing Intern Relationship Specialty Start Date End Date Zehra Evans DO PCP - General Internal Medicine 03/26/22 07/05/24 Martha Hood MD [address] [place] [address] PCP - General Internal Medicine 07/06/24 documented as of this encounter
--- OUTSIDE RECORDS SUMMARY | 2025-03-16 14:14 | XMS_ITS | Encounter Summary ---
Author Organization [facility] Address [address] [place] [address] Care Team Providers Care Ammonia Distiller Name Role Phone Sanjuanita Bhandari MD Primary Care Provider Un available Zehra Evans DO Primary Care Provider Unavaila Martha Barajas MD Primary Care Provider [phone] Encounter Details Date Type Department Care Team Description 07/22/2021 Orders Only Medicine/Pediatrics - [address] [address] Sanjuanita Bhandari MD Routine general medical examination at a health care facility; Screen for colon cancer Social History Tobacco Use Types Packs/Day Years Used Date Smoking Tobacco: Never Smokeless Tobacco: Never Alcohol Use Standard Drinks/Week Comments Yes 0 (1 standard drink = 0.6 oz pur e alcohol) 2-3 drinks/mo Sex Assigned at Date Recorded Not on file Job Start Date Occupation Industry Not on file Not on file Not on file COVID-19 Exposure Response Date Recorded In the last month, have you been in contact with someone who was confirmed or suspected to have Coronavirus / COVID-19? No / Unsure 07/03/2021 1:55 PM EDT documented as of this encounter Plan of Treatment Not on file documented as of this encounter Procedures Procedure Name Priority Date/Time Associated Diagnosis Comments CHG BLOOD OCCULT FECAL HGB DETER IA QUAL FECES 1-3 Routine 07/08/2021 4:23 PM EDT Routine general medical examination at a health care facility Screen for colon cancer documented in this encounter Results * BLOOD OCCULT QUAL FECAL HEMGLBN (07/08/2021 4:23 PM EDT) OCCULT BLOOD, STOOL NEG INTERNAL CONTROL VALID YES Stool 07/08/2021 4:23 PM EDT Sanjuanita Bhandari MD LAB documented in this encounter Visit Diagnoses Diagnosis Routine general medical examination at a health care facility Screen for colon cancer Special screening for malignant neoplasms, colon documented in this encounter Care Teams Ammonia Distiller Relationship Specialty Start Date End Date Sanjuanita Bhandari MD PCP - General 09/26/07 03/25/22 Zehra Evans DO PCP - General Internal Medicine 03/26/22 07/05/24 Martha Hood MD [address] [place] [address] PCP - General Internal Medicine 07/06/24 documented as of this encounter
--- OUTSIDE RECORDS SUMMARY | 2025-03-16 14:14 | XMS_ITS | Encounter Summary ---
Author Organization [facility] Address [address] [place] [address] Care Team Providers Care Fire And Safety Helper Name Role Phone Sanjuanita Bhandari MD Primary Care Provider Un available Zehra Evans DO Primary Care Provider Unavaila ble Martha Hood MD Primary Care Provider [phone] Encounter Details Date Type Department Care Team Description 10/28/2017 Orders Only Medicine/Pediatrics - [address] [address] Todd Mcclendon PA-C Social History Tobacco Use Types Packs/Day Years [...] on filedocumented in this encounter Care Teams Fire And Safety Helper Relationship Specialty Start Date End Date Sanjuanita Bhandari MD PCP - General 09/26/07 03/25/22 Zehra Evans DO PCP - General Internal Medicine 03/26/22 07/05/24 Martha Hood MD [address] [place] [id number] PCP - General Internal Medicine 07/06/24 documented as of this encounter
--- OUTSIDE RECORDS SUMMARY | 2025-03-16 14:14 | XMS_ITS | Encounter Summary ---
Author Organization [facility] Address [address] [place] [address] Care Team Providers Care Dietary Services Director Name Role Phone Sanjuanita Bhandari MD Primary Care Provider Un available Zehra Evans DO Primary Care Provider Unavaila Martha Barajas MD Primary Care Provider [phone] Reason for Visit * Reason Onset Date Comments REFERRAL 10/27/2013 BRCA Encounter Details Date Type Department Care Team Description 10/27/2013 Telephone WARRANTY CLERK - [address] [address] Angela Nunez CNM REFERRAL (BR[facility]) Social History Tobacco Use Types Packs/Day Years Used Date Smoking Tobacco: Never Smokeless Tobacco: Never Alcohol Use Standard Drinks/Week Comments Yes 0 (1 standard drink = 0.6 oz pur e alcohol) occasional, social Sex Assigned at Date Recorded Not on file Job Start Date Occupation Industry Not on file Not on file Not on file documented as of this encounter Miscellaneous Notes * Telephone Encounter - Cheryle Kapadia - 10/27/2013 3:10 PM EST Patient has not responded to letter or phone messages to schedule BRCA consult FYI for ordering provider I will request a referral to oncology. Reason for referral: JOVITA De La Torre for BRCA testing Priority: Next Available documented in this encounter Plan of Treatment Not on file documented as of this encounter Visit Diagnoses Not on filedocumented in this encounter Care Teams Dietary Services Director Relationship Specialty Start Date End Date Sanjuanita Bhandari MD PCP - General 09/26/07 03/25/22 Zehra Evans DO PCP - General Internal Medicine 03/26/22 07/05/24 Martha Hood MD [address] [place] [id number] PCP - General Internal Medicine 07/06/24 documented as of this encounter
--- OUTSIDE RECORDS SUMMARY | 2025-03-16 14:14 | XMS_ITS | Encounter Summary ---
Author Organization [facility] Address [address] [place] [address] Care Team Providers Care Applications Programmer Name Role Phone Zehra Evans DO Primary Care Provider Martha Hernandez MD Primary Care Provider [phone] Reason for Visit * Reason Comments E-prescribe Rx Request Encounter Details Date Type Department Care Team Description 06/26/2022 Refill Medicine/Pediatrics - [address] [address] Monserrat Pedraza PA-C E-prescribe Rx Request Social History Tobacco Use Types Packs/Day Years [...] on filedocumented in this encounter Care Teams Applications Programmer Relationship Specialty Start Date End Date Zehra Evans DO PCP - General Internal Medicine 03/26/22 07/05/24 Martha Hood MD [address] [place] [id number] PCP - General Internal Medicine 07/06/24 documented as of this encounter
--- OUTSIDE RECORDS SUMMARY | 2025-03-16 14:14 | XMS_ITS | Encounter Summary ---
Author Organization [facility] Address [address] [place] [address] Care Team Providers Care Asbestos Remover Name Role Phone Sanjuanita Bhandari MD Primary Care Provider Un available Zehra Evans DO Primary Care Provider Unavaila ble Martha Hood MD Primary Care Provider [phone] Encounter Details Date Type Department Care Team Description 12/24/2017 Long Winder Tender Report Medical Records [address] [place] [address] Mary Bermudez MD Social History Tobacco Use Types Packs/Day [...] on filedocumented in this encounter Care Teams Asbestos Remover Relationship Specialty Start Date End Date Sanjuanita Bhandari MD PCP - General 09/26/07 03/25/22 Zehra Evans DO PCP - General Internal Medicine 03/26/22 07/05/24 Martha Hood MD [address] [place], [place] [phone] PCP - General Internal Medicine 07/06/24 documented as of this encounter
--- OUTSIDE RECORDS SUMMARY | 2025-03-16 14:14 | XMS_ITS | Encounter Summary ---
Author Organization [facility] Address [address] [place] [address] Care Team Providers Care Hide Salter Name Role Phone Zehra Evans DO Primary Care Provider [facility] Martha Hood MD Primary Care Provider [phone] Encounter Details Date Type Department Care Team Description 11/14/2023 Refill Adult [address] [address] Zehra Evans DO Social History Tobacco Use Types Packs/Day Years [...] as of this encounter Visit Diagnoses Diagnosis Hypercholesteremia Pure hypercholesterolemia documented in this encounter Care Teams Hide Salter Relationship Specialty Start Date End Date Zehra Evans DO PCP - General Internal Medicine 03/26/22 07/05/24 Martha Hood MD [address] [place] [id number] PCP - General Internal Medicine 07/06/24 documented as of this encounter
--- OUTSIDE RECORDS SUMMARY | 2025-03-16 14:14 | XMS_ITS | Encounter Summary ---
Author Organization [facility] Address [address] [place] [address] Care Team Providers Care Solar Hot Water Installer Name Role Phone Zehra vEans DO Primary Care Provider Unavaila ble Martha Hood MD Primary Care Provider [phone] Reason for Visit * Reason Onset Date Comments Medication 10/07/2023 Encounter Details Date Type Department Care Team Description 10/07/2023 Refill Gastroenterology - [place] [address] [place] [id number] Lissette Luna MD [address] [place] [address] Medication Social History Tobacco Use Types Packs/Day Years [...] on filedocumented in this encounter Care Teams Solar Hot Water Installer Relationship Specialty Start Date End Date Zehra Evans DO PCP - General Internal Medicine 03/26/22 07/05/24 Martha Hood MD [address] [place] [id number] PCP - General Internal Medicine 07/06/24 documented as of this encounter
--- OUTSIDE RECORDS SUMMARY | 2025-03-16 14:14 | XMS_ITS | Clinical Summary ---
Author Organization [facility] Address [address] [place] [address] Phone Care Team Providers Care Industry Operations Investigator Name Role Phone Martha Hood MD Primary [...] Date S/P hysterectomy with oophorectomy 07/16/2017 10/25/2024 Immunizations Name Administration Dates Next Due Influenza [...] TEETH EXTRACTION OTHER SURGICAL HISTORY 11/08/2004 PROCEDURE: NE EXC PRTD PRIYA/PRTD GLND LAT LOBE W/O [...] LIVER DZ Other: Paternal Grandmother 70'S , ?[place] Diabetes Sister 1 Other: cancer cerv Sister [...] age to complete this topic Meningococcal B Vaccine Aged Out No l onger eligible based on patient's age to complete [...] Maintenance Results * (ABNORMAL) Lipid panel (07/20/2024) Pathologist [facility] LDL/HDL Ratio 4 0 - 4 Triglycerides 144 0 - 150 mg/dL Cholesterol 225(A) 0 - 200 mg/dL HDL 65 >=40 mg/dL LDL Cholesterol 132(A) 0 - 100 mg/dL Blood Venous blood specimen / Unknown us Historical Provider LAB BLOOD ORDERABLES Carolyn l Result * Hepatitis C Screening (01/07/2023) Pathologist [facility] Hepatitis C Screening Abstracted us Historical Provider HEALTH MAINTENANCE Final Result from Last 3 Months or Most Recently Relevant to Health Maintenance Insurance [facility] Care Teams Industry Operations Investigator Relationship Specialty Start Date End Date Martha Hood MD [address] [place] [address] PCP - General 07/06/24
--- OUTSIDE RECORDS SUMMARY | 2025-03-16 14:14 | XMS_ITS | Encounter Summary ---
Author Organization [facility] Address [address] [place] [address] Care Team Providers Care Chief Media Officer Name Role Phone Sanjuanita Bhandari MD Primary Care Provider Un available Zehra Evans DO Primary Care Provider Unavaila ble Martha Hood MD Primary Care Provider [phone] Encounter Details Date Type Department Care Team Description 04/12/2019 Coffee Weigher Report Medical Records [address] [place] [address] Social History Tobacco Use Types Packs/Day Years [...] on filedocumented in this encounter Care Teams Chief Media Officer Relationship Specialty Start Date End Date Sanjuanita Bhandari MD PCP - General 09/26/07 03/25/22 Zehra Evans DO PCP - General Internal Medicine 03/26/22 07/05/24 Martha Hood MD [address] [place] [phone] PCP - General Internal Medicine 07/06/24 documented as of this encounter
--- OUTSIDE RECORDS SUMMARY | 2025-03-16 14:14 | XMS_ITS | Encounter Summary ---
Author Organization [facility] Address [address] [place] [address] Care Team Providers Care Color Print Inspector Name Role Phone Sanjuanita Bhandari MD Primary Care Provider Un available Zehra Evans DO Primary Care Provider Unavaila ble Martha Hood MD Primary Care Provider Encounter Details Date Type Department Care Team Description 01/12/2019 Home Health Certification Medical Records [address] [place] [address] Yusuf Greene MD Social History Tobacco Use [...] on filedocumented in this encounter Care Teams Color Print Inspector Relationship Specialty Start Date End Date Sanjuanita Bhandari MD PCP - General 09/26/07 03/25/22 Zehra Evans DO PCP - General Internal Medicine 03/26/22 07/05/24 Martha Hood MD [address] [place], [place] [phone] PCP - General Internal Medicine 07/06/24 documented as of this encounter
--- OUTSIDE RECORDS SUMMARY | 2025-03-16 14:14 | XMS_ITS | Encounter Summary ---
Author Organization [facility] Address [address] [place] [address] Care Team Providers Care News Content Specialist Name Role Phone Sanjuanita Bhandari MD Primary Care Provider Un available Zehra Evans DO Primary Care Provider Unavaila Martha Barajas MD Primary Care Provider [phone] Encounter Details Date Type Department Care Team Description 10/27/2017 Pt. Non Urgent Medic al Question Medicine/Pediatrics - [address] [address] Todd Mcclendon PA-C Social History Tobacco Use [...] as of this encounter Progress Notes * Sherie Ray L.P.N. - 10/28/2017 8:52 AM ESTFrom: Nuvia Valentine To: Todd Mcclendon PA-C Sent: 10/27/2017 5:04 PM EST Subject: Tendonitis options Hi I saw you about a month ago for tendonitis in my thumbs. We decided to try an anti inflammatory(sulindac) to calm them down. So far it hasn't worked and I am still really uncomfortable. We had dicussed using a steroid if that wasn't working. I would like to try that option if you think that would be okay. I have been icing and doing the hand exercises as well. documented in this encounter Plan of Treatment Not on file documented as of this encounter Visit Diagnoses Not on filedocumented in this encounter Care Teams News Content Specialist Relationship Specialty Start Date End Date Sanjuanita Bhandari MD PCP - General 09/26/07 03/25/22 Zehra Evans DO PCP - General Internal Medicine 03/26/22 07/05/24 Martha Hood MD [address] [place] [id number] PCP - General Internal Medicine 07/06/24 documented as of this encounter
--- OUTSIDE RECORDS SUMMARY | 2025-03-16 14:14 | XMS_ITS | Encounter Summary ---
Author Organization [facility] Address [address] [place] [address] Care Team Providers Care Land Degradation Analyst Name Role Phone Sanjuanita Bhandari MD Primary Care Provider Un available Zehra Evans DO Primary Care Provider Unavaila Martha Barajas MD Primary Care Provider [phone] Encounter Details Date Type Department Care Team Description 03/15/2017 Pt. Non Urgent Medic al Question Medicine/Pediatrics - [address] [address] Sanjuanita Bhandari MD Social History Tobacco Use Types Packs/Day [...] Progress Notes * Sherie Ray L.P.N. - 03/15/2017 9:39 AM EDTFrom: Nuvia Valentine To: Sanjuanita Bhandari MD Sent: 03/15/2017 9:30 AM EDT Subject: Blood test result Just wondering what the blood test result from February was. Also do I still need to take an iron pill. I am taking a multivitamin that has iron in it. I had a hysterectomy in February so I am trying to determine my actual iron needs going forward. documented in this encounter Plan of Treatment Not on file documented as of this encounter Visit Diagnoses Not on filedocumented in this encounter Care Teams Land Degradation Analyst Relationship Specialty Start Date End Date Sanjuanita Bhandari MD PCP - General 09/26/07 03/25/22 Zehra Evans DO PCP - General Internal Medicine 03/26/22 07/05/24 Martha Hood MD [address] [place] [id number] PCP - General Internal Medicine 07/06/24 documented as of this encounter
--- OUTSIDE RECORDS SUMMARY | 2025-03-16 14:14 | XMS_ITS | Encounter Summary ---
Author Organization [facility] Address [address] [place] [address] Care Team Providers Care Transmission Technician Name Role Phone Zehra Evans DO Primary Care Provider [facility] Martha Hood MD Primary Care Provider [phone] Reason for Visit * Reason Comments E-prescribe Rx Request Encounter Details Date Type Department Care Team Description 02/24/2024 Refill Adult Medicine - [address] [address] Zehra Evans DO E-prescribe Rx Request Social History Tobacco Use [...] encounter Miscellaneous Notes * Telephone Encounter - Holland Sheffield - 02/24/2024 1:22 PM EDT Duplicate documented in this encounter Plan of Treatment Not on file documented as of this encounter Visit Diagnoses Diagnosis Hypercholesteremia Pure hypercholesterolemia documented in this encounter Care Teams Transmission Technician Relationship Specialty Start Date End Date Zehra Evans DO PCP - General Internal Medicine 03/26/22 07/05/24 Martha Hood MD [address] [place] [id number] PCP - General Internal Medicine 07/06/24 documented as of this encounter
--- OUTSIDE RECORDS SUMMARY | 2025-03-16 14:14 | XMS_ITS | Encounter Summary ---
Author Organization [facility] Address [address] [place] [address] Care Team Providers Care Sand Carrier Name Role Phone Zehra Evans DO Primary Care Provider Martha Hernandez MD Primary Care Provider [phone] Encounter Details Date Type Department Care Team Description 01/27/2023 Pt. Non Urgent Medic al Question Adult Medicine - [address] [address] Lisa Pittman PA-C [address] [place] [address] Social History Tobacco Use Types Packs/Day Years Used Date Smoking Tobacco: Never Smokeless Tobacco: Never Alcohol Use Standard Drinks/Week Comments Yes 0 (1 standard drink = 0.6 oz pur e alcohol) 2-3 drinks/mo Sex Assigned at Date Recorded Not on file Job Start Date Occupation Industry Not on file Not on file Not on file COVID-19 Exposure Response Date Recorded In the last 10 days, have yo u been in contact with someone who was confirmed or suspected to have Coronavirus/COVID-19? No / Unsure 01/07/2023 11:06 AM EST documented as of this encounter Miscellaneous Notes * Telephone Encounter - Barbara Ibrahim L.P.N. - 01/27/2023 6:45 AM EDT From: Nuvia Valentine To: Linda Pittman Sent: 01/27/2023 6:10 AM EDT Subject: Stress test After some consideration I have chosen not to do the extra heart testing. I have had no further issues with a racing heart. Also I didn't realize the stress test was on a treadmill. I have a great fear of treadmills after falling and breaking my ankle on one. I cannot get on one. If I have anymore issues I will make an appointment. Thanks documented in this encounter Plan of Treatment Not on file documented as of this encounter Visit Diagnoses Not on filedocumented in this encounter Care Teams Sand Carrier Relationship Specialty Start Date End Date Zehra Evans DO PCP - General Internal Medicine 03/26/22 07/05/24 Martha Hood MD [address] [place] [id number] PCP - General Internal Medicine 07/06/24 documented as of this encounter
--- OUTSIDE RECORDS SUMMARY | 2025-03-16 14:15 | XMS_ITS | Encounter Summary ---
Author Organization [facility] Address [address] [place] [address] Care Team Providers Care Sidehand Name Role Phone Sanjuanita Bhandari MD Primary Care Provider Un available Zehra Evans DO Primary Care Provider Unavaila Martha Baraajs MD Primary Care Provider [phone] Reason for Referral * Non STEFF (Urgent) - Authorized/Booked Specialty Diagnoses / Procedures Referred By Contac t Referred To Contact Obstetrics/Gynecology / Obstetrics & Gynecology Procedures REFERRAL TO OBSTETRICS & GYNECOLOGY Sanjuanita Bhandari MD [address] [place] [address] [address] [place] [address] Referral ID Status Reason Start Date Expiration Date V isits Requested Visits Authorized SEE NOTE Authorized/B ooked 01/10/2017 04/13/2017 1 1 Reason for Visit * Reason Onset Date Comments Beater Boss Feedback 01/06/2017 dee dee Sy [id number] Encounter Details Date Type Department Care Team Description 01/06/2017 Telephone Medicine/Pediatrics - [address] [id number] Sanjuanita Bhandari MD Beater Boss Feedback (dee dee Sy [id number] ) Social History Tobacco Use Types Packs/Day Years [...] encounter Miscellaneous Notes * Telephone Encounter - Sanjuanita Bhandari MD - 01/10/2017 3:22 PM EST Done, thanks. * Telephone Encounter - Amina Jovel - 01/06/2017 8:54 AM EST Please review this patients new referral request. The referral has been pended. Please complete thefollowing: If approved> sign order If denied>please give instructions and route to your practice nursing pool. Practice nurse should inform referrals and the patient if denied. * Telephone Encounter - Yudith Scmhid - 01/06/2017 8:43 AM EST What insurance does the patient have today? Bcbs Effective 08/08/09: BCBS will not retro referral requests over 90 days. If request is for this please instruct patient to call the 800# on their insurance card to appeal. Do not submit a request. Referrals cannot be processed if the insurance is not accurate. If the insurance listed above in red is NO BILLING INFORMATION FOUND FOR THIS ENCOUTNER The patients correct insurance must be obtained and registered in [facility] or their referral can not be processed. Is this a retro request? NO. If yes for what date of service do you need the retro referral? N/A Who is calling to request this referral? patricia If the caller is not the patient, what is their name? N/A Ask the patient WHO referred them to this specialty: Patient self referred FIRST and LAST NAME of SPECIALIST PATIENT is seeing: dee dee hamilton - [id number] What specialty is this? obgyn DIAGNOSIS Patient is being seen for (Not a body part or a procedure): fibroid uterus , total adominal hysterectomy bilateral salting ufferectomy and systoscopy. Have you seen this SPECIALIST for this PROBLEM/DX before?NO If YES, when: Have you checked REVIEW or the APPT DESK to see if this referral has already been done or has visits left? YES Is this visit:Initial Visit Address of Specialist: [facility] Phone # of Specialist:[phone] Fax #: (if applicable):[phone] ( please fax referall ) Does patient have an appointment scheduled?: YES Date of appointment- (including a retro-request): 02/01/2017 - 8 visits Is this appointment related to: Surgery documented in this encounter Plan of Treatment Not on file documented as of this encounter Visit Diagnoses Not on filedocumented in this encounter Care Teams Sidehand Relationship Specialty Start Date End Date Sanjuanita Bhandari MD PCP - General 09/26/07 03/25/22 Zehra Evans DO PCP - General Internal Medicine 03/26/22 07/05/24 Martha Hood MD [address] [place] [id number] PCP - General Internal Medicine 07/06/24 documented as of this encounter
--- OUTSIDE RECORDS SUMMARY | 2025-03-16 14:15 | XMS_ITS | Encounter Summary ---
Author Organization [facility] Address [address] [place] [address] Care Team Providers Care Sight Mounter Name Role Phone Sanjuanita Bhandari MD Primary Care Provider Un available Zehra Evans DO Primary Care Provider Unavaila Martha Barajas MD Primary Care Provider [phone] Reason for Referral * Non STEFF (Priority) - Authorized/Booked Specialty Diagnoses / Procedures Referred By Contac t Referred To Contact Oncology/Hematology Procedures REFERRAL TO ONCOLOGY/HEMATOLOGY Todd Mcclendon PA-C [address] [place] [address] Holly Diaz MD [facility] [address] [place] [address] Referral ID Status Reason Start Date Expiration Date V isits Requested Visits Authorized [id number] Authorized/B ooked 12/09/2016 12/09/2017 12 12 Encounter Details Date Type Department Care Team Description 12/09/2016 Orders Only Medicine/Pediatrics - [address] [phone] Todd Mcclendon PA-C Social History Tobacco Use [...] on filedocumented in this encounter Care Teams Sight Mounter Relationship Specialty Start Date End Date Sanjuanita Bhandari MD PCP - General 09/26/07 03/25/22 Zehra Evans DO PCP - General Internal Medicine 03/26/22 07/05/24 Martha Hood MD [address] [place] [address] PCP - General Internal Medicine 07/06/24 documented as of this encounter
[2025-03-16 18:04] LABS: Alanine Aminotransferase 55 U/L (0-31); Aspartate Amino Transferase 31 U/L (5-31)
== END 2025-03-16 14:13 | disposition home or self-care (01) ==
LOC: HO.WFDLDS 14:12
PROVIDERS: Visit Provider Physician Assistant Medical
DX: R79.89 Other specified abnormal findings of blood chemistry (principal)
CPT/HCPCS: 36415; 84450; 84460

== ENCOUNTER 2025-03-19 15:10 | Outpatient (AMB) | payer BC, SELFPAY ==
--- NOTE | 2025-03-19 15:14 | MHC.PC.OV ---
Vital Signs 03/19/25 15:22 Height 5 ft 2 in Weight 205 lb 8 oz BMI 37.6 BP 120/76 Blood Pressure Location Rt brachial Position Sitting Pulse 94 Pulse Source Pulse Oximeter Temp 97.7 F Temp Source Temporal Artery Scan Pulse Oximetry (%) 95 Oxygen Delivery Method Room Air Intake Visit Reasons: med check Intake Note: Nuvia presents in the office today for a medication check in. Allergies Seasonal Allergies Allergy (Verified 03/19/25 15:17) Watery eyes, runny nose Tobacco use date assessed: 03/19/25 Dental Screening Dental Screen Date: 03/19/25 Did you have a dental visit in the last 12 months?: Yes Did you have a dental problem in the last 6 months where you did not have access to dental care?: No Was dental information given to patient?: Patient has dentist HPI HPI Comments History of Present Illness Details This is a 54-year-old female with a past medical history of hyperlipidemia, seasonal allergies and obesity presenting for follow up. She takes 20 mg of atorvastatin for hyperlipidemia. There is a strong family history of heart disease on her father's side of the family. Requests lipoprotein a test. She does not smoke. She has not been able to exercise due to chronic right ankle pain. She broke her ankle and dislocated it in 2017. She also has intermittent swelling on the inside and outside of the ankle at improves when she uses topical CBD products. She tries not to take Tylenol and Advil. There is no numbness or tingling or weakness reported. She had blood work done 01/05/2025 which showed mildly elevated ALT at 41, normal AST and alkaline phosphatase. LDL cholesterol 127, HDL 62, triglycerides 102. She repeated liver enzymes on 03/16/2025, and AST is 31 and ALT is 55. Denies abdominal pain, nausea, vomiting, unexplained weight loss and jaundice. She takes atorvastatin 20 mg for hyperlipidemia. She has been on this medication for a long time. There is a strong family history of heart disease on her father's side of the family. She does not smoke. She has not really been able to exercise due to chronic right ankle pain. As you recall she broke her ankle and dislocated it in 2017. I referred her back to Orthopedics, and she is going to call them to schedule an appointment, but she has not done so yet. She uses topical CBD products which helps. She tries not to take xlgy-csa-eaockmw meds like Tylenol and Advil. There is no numbness or tingling or weakness reported with this. She wants to work on weight loss, and she is on weight watchers. Her insurance did not cover GLP 1. She is going to see if she can get the medication approved through weight watchers. She is due for mammogram. She had a colonoscopy in October 2024, and she reports there were a few polyps, and she was told to repeat it in 5 years. She is going to call Dr. Umana is office to schedule an annual regulatory and compliance technician exam. She had a hysterectomy. Patient had a mammogram in January 2025. ROS: Constitutional: No unexplained weight loss, fever, chills, fatigue or night sweats. Eyes: No vision changes, blurry vision, double vision, eye pain, eye redness, eye discharge. Respiratory: No shortness of breath, wheezing, cough or sputum production. Cardiovascular: No chest pain, chest pressure or chest discomfort. No palpitations. Gastrointestinal: No anorexia, nausea, vomiting or diarrhea. No abdominal pain or blood in stool. Neurologic: No weakness, ataxia, numbness or tingling in the extremities. Musculoskeletal: See HPI Psychiatric: No depression or anxiety. No SI/HI. Physical exam: Constitutional: Alert, in no distress. Eyes: Pupils are equal, round and reactive to light. Extraocular muscles intact. Anicteric. Neck: Supple, Full range of motion. No lymphadenopathy. Abdomen: Soft, nontender, no palpable masses, rebound or guarding. Bowel sounds normal active in 4 quadrants. Respiratory: Clear to auscultation. Cardiovascular: S1 S2 regular. No murmurs Psychiatric: Normal mood and affect [facility] Medical History (Updated 01/09/25 @ 16:04 by JOVITA Crowley) LFT elevation Colon polyps GERD (gastroesophageal reflux disease) Obesity (BMI 35.0-39.9 without comorbidity) Right ankle pain Pure hypercholesterolemia Screening for cardiovascular condition Surgical History (Updated 12/18/24 @ 12:11 by Coco Teresa CMA) H/O total hysterectomy with bilateral salpingo-oophorectomy (BSO) (~2016) History of wisdom tooth extraction Family History (Updated 03/19/25 @ 15:19 by Graciela Lowe MA) Mother Ovarian cancer Sister Cervical cancer Paternal Grandfather Diabetes Maternal Grandmother Heart attack Maternal Grandfather Heart attack MRSA infection Maternal Grandmother Colon cancer Father Congestive heart failure Social History (Updated 03/19/25 @ 15:19 by Graciela Loew MA) Household Members: Spouse Housing: House Alcohol intake: current Alcohol intake frequency: a few times a week Alcohol type: beer, wine and hard liquor Patient Tobacco Use Status: Never used Tobacco e-Cigarette/Vaping Use: Never Used service: No Current occupational status: employed 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 1. Little interest or pleasure in doing things: not at all 2. Feeling down, depressed, or hopeless: not at all 3. Trouble falling or staying asleep, or sleeping too much: not at all 4. Feeling tired or having little energy: not at all 5. Poor appetite or overeating: not at all 6. Feeling bad about yourself - or that you are a failure or have let yourself or your family down: not at all 7. Trouble concentrating on things, such as reading the newspaper or watching television: not at all 8. Moving or speaking so slowly that other people could have noticed. Or the opposite - being so fidgety or restless that you have been moving around a lot more than usual: not at all 9. Thoughts that you would be better off or of hurting yourself in some way: not at all Total score: 0 Depression Screening Interpretation: Negative Depression Screening Done: Yes 95007 - PHQ-9 Billing: Patient declined-do not bill Source: Developed by Drs. Mina Collado, Renata Andre, Faraz Armijo and colleagues, with an educational adeola from [employer]. Thrive Questionnaire Date Thrive assessed: 03/19/25 I am a: Patient What is your living situation today?: I have a steady place to live Within the past 12 months, did the food you bought not last and you didn't have the money to get more?: Never true Within the past 12 months, did you worry whether your food would run out before you got money to buy more?: Never true Do you have trouble paying for medicines?: No Do you have trouble getting transportation to medical appointments?: No Do you have trouble paying your heating and electricity bill?: No Do you have trouble taking care of your child, family member or friend?: No Do you have trouble with day-to-day activities such as bathing, preparing meals, shopping, managing finances, etc.?: No Are you currently unemployed and looking for a job?: No Are you interested in more education?: No Please select the resources that you would like help with: None Currently or been in a relationship where the following occur: No concerns reported THRIVE Score: 0 AUDIT C Alcohol Use Questionnaire (AUDIT-C) 1. How often do you have a drink containing alcohol?: 2-4 times a month 2. How many drinks containing alcohol do you have on a typical day when you are drinking?: 1 or 2 3. How often do you have six or more drinks on one occasion?: Never Total Score: 2 Score Reviewed/Action Taken: No DESHAWN-7 AMB Questionnaire DESHAWN-7 Date DESHAWN - 7 assessed: 03/19/25 Feeling nervous, anxious, or on edge: 0 = Not at all Not being able to stop or control worryin = Not at all Worrying too much about different things: 0 = Not at all Trouble relaxin = Not at all Being so restless that it is hard to sit still: 0 = Not at all Becoming easily annoyed or irritable: 0 = Not at all Feeling afraid as if something awful might happen: 0 = Not at all Total DESHAWN-7 score (0-4 normal; 5-9 mild; 10-14 moderate; 15-21 severe): 0 Source: Developed by Drs. Mina Collado, Renata Andre, Faraz Armijo and colleagues, with an educational adeola from [employer]. DESHAWN-7 Assessment Billing DESHAWN-7 Assessment Tool: DESHAWN-7 Assessment 25975 Physical exam (Primary Care) Vital Signs: Last Vital Signs Temp 97.7 F 03/19/25 15:22 Pulse 94 03/19/25 15:22 BP 120/76 03/19/25 15:22 Pulse Ox 95 03/19/25 15:22 Oxygen Delivery Method Room Air 03/19/25 15:22 BMI result Body Mass Index 37.6 Tobacco/Smoking Status: Tobacco use Status Tobacco use date assessed 03/19/25 03/19/25 15:20 Patient Tobacco Use Status Never used Tobacco 03/19/25 15:20 e-Cigarette/Vaping Use Never Used 03/19/25 15:20 PHQ-9: PHQ-9 Score PHQ-9: Total score 0 03/19/25 15:23 Depression Screening Interpretation: Negative Thrive Assessment: Date of Thrive Assessment Date Thrive assessed 03/19/25 03/19/25 15:23 Currently or been in a relationship where the following occur: No concerns reported Coding Level of Care Code Est Pt Level 4 (22229) Complex EM visit Add On G2211 Diagnoses Pure hypercholesterolemia E78.00 Obesity (BMI 35.0-39.9 without comorbidity) E66.9 Right ankle pain M25.571 LFT elevation R79.89 Additional Codes DESHAWN-7 Assessment Billing - DESHAWN-7 Assessment Tool: DESHAWN-7 Assessment 17684 ([id number]) Assessment & Plan Assessment & Plan (1) Pure hypercholesterolemia: Code(s): E78.00 - Pure hypercholesterolemia, unspecified Category: Medical Plan: Continue atorvastatin at this time. Recommended Mediterranean diet, avoid tobacco use, avoid excessive alcohol. She is working on weight loss. Patient requested lipid protein a even if insurance does not cover it she will pay for it she says. Ordered. We also discussed coronary artery calcium CT scan given family history. She is going to check with her insurance and message me if she would like me to order this test which I recommended. (2) Obesity (BMI 35.0-39.9 without comorbidity): Code(s): E66.9 - Obesity, unspecified Category: Medical Plan: Her insurance did not cover GLP 1. She is in weight watchers in his going to pursue getting the medication through the program. (3) Right ankle pain: Code(s): M25.571 - Pain in right ankle and joints of right foot Category: Medical Plan: She will call orthopedics for re-evaluation. Referral was processed. (4) LFT elevation: Code(s): R79.89 - Other specified abnormal findings of blood chemistry Category: Medical Plan: Differential reviewed including viral infection, medication side effect, hepatic steatosis, malignancy though this is less likely. She has no concerning symptoms. Check pancreatic enzymes, hepatitis a, B and C serology an ultrasound of the abdomen with elastography. Recommended avoidance of alcohol, following low-cholesterol diet and avoiding gphy-lrx-ebffpxx pain medications if possible for now. Plan Schedule physical exam in 6 months. Orders: Orders Hepatitis A,B,C Profile Today R79.89 - Other specified abnormal findings of blood chemistry Lipase Today R79.89 - Other specified abnormal findings of blood chemistry Aspartate Amino Transferase Today R79.89 - Other specified abnormal findings of blood chemistry US abdomen laughlin w elastography Today R79.89 - Other specified abnormal findings of blood chemistry Hepatitis A IgM Today R79.89 - Other specified abnormal findings of blood chemistry Amylase Today R79.89 - Other specified abnormal findings of blood chemistry Alanine Aminotransferase Today R79.89 - Other specified abnormal findings of blood chemistry Lipoprotein A Today E78.00 - Pure hypercholesterolemia, unspecified
--- OUTSIDE RECORDS SUMMARY | 2025-03-19 15:16 | XMS_ITS | Encounter Summary ---
Author Organization [facility] Address [address] [place] [address] Care Team Providers Care Small Lot Operator Name Role Phone Sanjuanita Bhandari MD Primary Care Provider Un available Zehra Evans DO Primary Care Provider Unavaila ble Martha Hood MD Primary Care Provider [phone] Encounter Details Date Type Department Care Team Description 10/28/2017 Orders Only Medicine/Pediatrics - [address] [phone] Todd Mcclendon PA-C Social History Tobacco Use [...] on filedocumented in this encounter Care Teams Small Lot Operator Relationship Specialty Start Date End Date Sanjuanita Bhandari MD PCP - General 09/26/07 03/25/22 Zehra Evans DO PCP - General Internal Medicine 03/26/22 07/05/24 Martha Hood MD [address] [place] [id number] PCP - General Internal Medicine 07/06/24 documented as of this encounter
--- OUTSIDE RECORDS SUMMARY | 2025-03-19 15:16 | XMS_ITS | Encounter Summary ---
Author Organization [facility] Address [address] [place] [address] Care Team Providers Care Climatologist Name Role Phone Sanjuanita Bhandari MD Primary Care Provider Un available Zehra Evans DO Primary Care Provider Unavaila ble Martha Hood MD Primary Care Provider [phone] Encounter Details Date Type Department Care Team Description 04/12/2019 Food And Beverage Assistant Manager Report Medical Records [address] [place] [address] Social History Tobacco Use Types Packs/Day Years [...] on filedocumented in this encounter Care Teams Climatologist Relationship Specialty Start Date End Date Sanjuanita Bhandari MD PCP - General 09/26/07 03/25/22 Zehra Evans DO PCP - General Internal Medicine 03/26/22 07/05/24 Martha Hood MD [address] [place] [id number] PCP - General Internal Medicine 07/06/24 documented as of this encounter
--- OUTSIDE RECORDS SUMMARY | 2025-03-19 15:16 | XMS_ITS | Encounter Summary ---
Author Organization [facility] Address [address] [place] [address] Care Team Providers Care Solar Installer Technician Name Role Phone Martha Hood MD Primary Care Provider [phone] Reason for Visit * Reason Comments E-prescribe Rx Request Encounter Details Date Type Department Care Team Description 08/31/2024 Refill Adult Medicine [address] [address] Zehra Evans DO E-prescribe Rx Request Social [...] Telephone Encounter - Barbara Ibrahim L.P.N. - 08/31/2024 9:41 AM EDT Please call patient to schedule appointment with her new care team documented in this encounter Plan of Treatment Not on file documented as of this encounter Visit Diagnoses Diagnosis Hypercholesteremia Pure hypercholesterolemia documented in this encounter Care Teams Solar Installer Technician Relationship Specialty Start Date End Date Martha Hood MD [address] [place] [id number] PCP - General Internal Medicine 07/06/24 documented as of this encounter
--- OUTSIDE RECORDS SUMMARY | 2025-03-19 15:16 | XMS_ITS | Encounter Summary ---
Author Organization [facility] Address [address] [place] [address] Care Team Providers Care Game Designer Name Role Phone Sanjuanita Bhandari MD Primary Care Provider Un available Zehra Evans DO Primary Care Provider Unavaila ble Martha Hood MD Primary Care Provider [phone] Encounter Details Date Type Department Care Team Description 01/11/2019 Hospital Medical Records [address] [place] [address] Yusuf Greene MD Social History Tobacco Use [...] on filedocumented in this encounter Care Teams Game Designer Relationship Specialty Start Date End Date Sanjuanita Bhandari MD PCP - General 09/26/07 03/25/22 Zehra Evans DO PCP - General Internal Medicine 03/26/22 07/05/24 Martha Hood MD [address] [place] [address] [id number] PCP - General Internal Medicine 07/06/24 documented as of this encounter
--- OUTSIDE RECORDS SUMMARY | 2025-03-19 15:16 | XMS_ITS | Encounter Summary ---
Author Organization [facility] Address [address] [place] [address] Care Team Providers Care Cattle Shipper Name Role Phone Zehra Evans DO Primary Care Provider Martha Hernandez MD Primary Care Provider [phone] Encounter Details Date Type Department Care Team Description 01/27/2023 Pt. Non Urgent Medic al Question Adult Medicine - [address] [address] Lisa Pittman PA-C [address] [place] [address] Social History Tobacco Use Types Packs/Day Years [...] on filedocumented in this encounter Care Teams Cattle Shipper Relationship Specialty Start Date End Date Zehra Evans DO PCP - General Internal Medicine 03/26/22 07/05/24 Martha Hood MD [address] [place] [phone] PCP - General Internal Medicine 07/06/24 documented as of this encounter
--- OUTSIDE RECORDS SUMMARY | 2025-03-19 15:16 | XMS_ITS | Encounter Summary ---
Author Organization [facility] Address [address] [place] [address] Care Team Providers Care Herb Grower Name Role Phone Sanjuanita Bhandari MD Primary Care Provider Un available Zehra Evans DO Primary Care Provider Unavaila ble Martha Hood MD Primary Care Provider [phone] Encounter Details Date Type Department Care Team Description 12/03/2016 Release of Information Medical Records [address] [place] [id number] Abstract, Provider Social History Tobacco Use Types Packs/Day Years [...] on filedocumented in this encounter Care Teams Herb Grower Relationship Specialty Start Date End Date Sanjuanita Bhandari MD PCP - General 09/26/07 03/25/22 Zehra Evans DO PCP - General Internal Medicine 03/26/22 07/05/24 Martha Hood MD [address] [place] [id number] PCP - General Internal Medicine 07/06/24 documented as of this encounter
--- OUTSIDE RECORDS SUMMARY | 2025-03-19 15:16 | XMS_ITS | Encounter Summary ---
Author Organization [facility] Address [address] [place] [address] Care Team Providers Care Horse Racing Manager Name Role Phone Zehra Evans DO Primary Care Provider Martha Hernandez MD Primary Care Provider Encounter Details Date Type Department Care Team Description 10/20/2023 Orders Only Medical Records [address] [place] [address] Lissette Luna MD [address] [place] [address] Social History Tobacco Use Types Packs/Day Years [...] Certified Gastroenterology and Internal Medicine Transplant Hepatology [facility] documented in this encounter Plan [...] on filedocumented in this encounter Care Teams Horse Racing Manager Relationship Specialty Start Date End Date Zehra Evans DO PCP - General Internal Medicine 03/26/22 07/05/24 Martha Hood MD [address] [place] [address] PCP - General Internal Medicine 07/06/24 documented as of this encounter
--- OUTSIDE RECORDS SUMMARY | 2025-03-19 15:16 | XMS_ITS | Clinical Summary ---
Author Organization [facility] Address [address] [place] [address] Phone Care Team Providers Care Fractionation Plant Supervisor Name Role Phone Martha Hood MD Primary Care Provider [phone] Allergies No known active allergies Medications atorvastatin [...] TEETH EXTRACTION OTHER SURGICAL HISTORY 11/08/2004 PROCEDURE: [place] EXC PRTD PRIYA/PRTD GLND LAT LOBE W/O [...] LIVER DZ Other: Paternal Grandmother 70'S , ?[place] Diabetes Sister 1 Other: cancer cerv Sister [...] Results * (ABNORMAL) Lipid panel (07/20/2024) Pathologist [facility] LDL/HDL Ratio 4 0 - 4 Triglycerides 144 0 - 150 mg/dL Cholesterol 225(A) 0 - 200 mg/dL HDL 65 >=40 mg/dL LDL Cholesterol 132(A) 0 - 100 mg/dL Blood Venous blood specimen / Unknown us Historical Provider LAB BLOOD ORDERABLES Carolyn l Result * Hepatitis C Screening (01/07/2023) Pathologist Counts include 234 beds at the [facility] Hepatitis C Screening Abstracted us Historical Provider HEALTH MAINTENANCE Final Result from Last 3 Months or Most Recently Relevant to Health Maintenance Insurance [facility] Care Teams Fractionation Plant Supervisor Relationship Specialty Start Date End Date Martha Hood MD [address] [place] [address] PCP - General 07/06/24
--- OUTSIDE RECORDS SUMMARY | 2025-03-19 15:16 | XMS_ITS | Encounter Summary ---
Author Organization [facility] Address [address] [place] [address] Care Team Providers Care Cad Designer Drafter Name Role Phone Sanjuanita Bhandari MD Primary Care Provider Un available Zehra Evans DO Primary Care Provider Unavaila Martha Barajas MD Primary Care Provider [phone] Encounter Details Date Type Department Care Team Description 07/07/2011 Pt. Non Urgent Medical Question STUDENT SERVICES REPRESENTATIVE - [address] [address] Manuela Isidro, [address] [address] Social History Tobacco Use Types Packs/Day Years Used Date Smoking Tobacco: Never Smokeless Tobacco: Never Alcohol Use Standard Drinks/Week Comments Yes 0 (1 standard drink = 0.6 oz pur e alcohol) occasional, social Sex Assigned at Date Recorded Not on file Job Start Date Occupation Industry Not on file Not on file Not on file documented as of this encounter Progress Notes * Belia Esparza R.N. - 07/07/2011 2:27 PM EDTFrom: PRANAY CHAVEZ To: Manuela Isidro Sent: WedJul 07, 2011 1:28 PM Subject: Fibroid sizes? Just wondering about the size of my fibroids. Should I be concerned that they are growing? I also noted that my IUD is in satisfactory place, but what about the strings that I no longer feel, should I worry about that? Thanks for your time Pranay documented in this encounter Plan of Treatment Not on file documented as of this encounter Visit Diagnoses Not on filedocumented in this encounter Care Teams Cad Designer Drafter Relationship Specialty Start Date End Date Sanjuanita Bhandari MD PCP - General 09/26/07 03/25/22 Zehra Evans DO PCP - General Internal Medicine 03/26/22 07/05/24 Martha Hood MD [address] [place] [address] PCP - General Internal Medicine 07/06/24 documented as of this encounter
--- OUTSIDE RECORDS SUMMARY | 2025-03-19 15:16 | XMS_ITS | Encounter Summary ---
Author Organization [facility] Address [address] [place] [address] Care Team Providers Care Correctional Maintenance Technician Name Role Phone Sanjuanita Bhandari MD Primary Care Provider Un available Zehra Evans DO Primary Care Provider Unavaila Martha Barajas MD Primary Care Provider [phone] Reason for Referral * Non STEFF (Urgent) - Authorized/Booked Specialty Diagnoses / Procedures Referred By Contac t Referred To Contact Obstetrics/Gynecology / Obstetrics & Gynecology Procedures REFERRAL TO OBSTETRICS & GYNECOLOGY Sanjuanita Bhandari MD [address] [place] [address] [address] [place] [address] Referral ID Status Reason Start Date Expiration Date V isits Requested Visits Authorized SEE NOTE Authorized/B ooked 01/10/2017 04/13/2017 1 1 Reason for Visit * Reason Onset Date Comments Polygraph Operator Feedback 01/06/2017 dee dee Sy [id number] Encounter Details Date Type Department Care Team Description 01/06/2017 Telephone Medicine/Pediatrics - [address] [phone] Sanjuanita Bhandari MD Polygraph Operator Feedback (dee dee Sy [id number] ) Social History Tobacco Use Types Packs/Day [...] if denied. * Telephone Encounter - Yudith Schmid - 01/06/2017 8:43 AM EST What insurance [...] insurance must be obtained and registered in [facility] or their referral can not be processed. [...] PATIENT is seeing: dee dee hamilton - [id number] What specialty is this? obgyn DIAGNOSIS Patient [...] this visit:Initial Visit Address of Specialist: [facility] Phone # of Specialist:[phone] Fax #: (if applicable):[phone] ( please fax referall ) Does patient have an appointment scheduled?: YES Date of appointment- (including a retro-request): 02/01/2017 - 8 visits Is this appointment related to: Surgery documented in this encounter Plan of Treatment Not on file documented as of this encounter Visit Diagnoses Not on filedocumented in this encounter Care Teams Correctional Maintenance Technician Relationship Specialty Start Date End Date Sanjuanita Bhandari MD PCP - General 09/26/07 03/25/22 Zehra Evans DO PCP - General Internal Medicine 03/26/22 07/05/24 Martha Hood MD [address] [place] [id number] PCP - General Internal Medicine 07/06/24 documented as of this encounter
--- OUTSIDE RECORDS SUMMARY | 2025-03-19 15:16 | XMS_ITS | Encounter Summary ---
Author Organization [facility] Address [address] [place] [address] Care Team Providers Care Shear Operator Automatic Name Role Phone Zehar Evnas DO Primary Care Provider Martha Hernandez MD Primary Care Provider [phone] Reason for Visit * Reason Onset Date Comments medication problems 02/24/2024 Encounter Details Date Type Department Care Team Description 02/24/2024 Telephone Adult Medicine - [address] [address] Zehra Evans DO medication problems Social History Tobacco Use Types Packs/Day Years [...] Telephone Encounter - Barbara Ibrahim L.P.N. - 02/24/2024 1:02 PM EDT Pharmacy did not receive Verbal given * Telephone Encounter - Holland Lazarojay - 02/24/2024 1:00 PM EDT Who is calling? The patient Name of the medication atorvastatin (LIPITOR) 20 MG tablet What is the specific problem or interaction? Pt states medication has still not been received from pharmacy. Needs script resent or called in directly to the pharmacy. If the patient is having a problem with taking the med - how long has the problem been going on? N/A documented in this encounter Plan of Treatment Not on file documented as of this encounter Visit Diagnoses Not on filedocumented in this encounter Care Teams Shear Operator Automatic Relationship Specialty Start Date End Date Zehra Evans DO PCP - General Internal Medicine 03/26/22 07/05/24 Martha Hood MD [address] [place] [address] PCP - General Internal Medicine 07/06/24 documented as of this encounter
--- OUTSIDE RECORDS SUMMARY | 2025-03-19 15:16 | XMS_ITS | Encounter Summary ---
Author Organization [facility] Address [address] [place] [address] Care Team Providers Care Package Dyer Name Role Phone Sanjuanita Bhandari MD Primary Care Provider Un available Zehra Evans DO Primary Care Provider Unavaila ble Martha Hood MD Primary Care Provider [phone] Encounter Details Date Type Department Care Team Description 05/16/2019 Bias Cutter Report Medical Records [address] [place] [address] Social History Tobacco Use Types Packs/Day Years [...] on filedocumented in this encounter Care Teams Package Dyer Relationship Specialty Start Date End Date Sanjuanita Bhandari MD PCP - General 09/26/07 03/25/22 Zehra Evans DO PCP - General Internal Medicine 03/26/22 07/05/24 Martha Hood MD [address] [place] [id number] PCP - General Internal Medicine 07/06/24 documented as of this encounter
--- OUTSIDE RECORDS SUMMARY | 2025-03-19 15:16 | XMS_ITS | Encounter Summary ---
Author Organization [facility] Address [address] [place] [address] Care Team Providers Care Retail Field Supervisor Name Role Phone Zehra Evans DO Primary Care Provider Martha Hernandez MD Primary Care Provider [phone] Reason for Visit * Reason Comments E-prescribe Rx Request Encounter Details Date Type Department Care Team Description 06/26/2022 Refill Medicine/Pediatrics - [address] [phone] Monserrat Pedraza PA-C E-prescribe Rx Request Social [...] on filedocumented in this encounter Care Teams Retail Field Supervisor Relationship Specialty Start Date End Date Zehra Evans DO PCP - General Internal Medicine 03/26/22 07/05/24 Martha Hood MD [address] [place] [id number] PCP - General Internal Medicine 07/06/24 documented as of this encounter
--- OUTSIDE RECORDS SUMMARY | 2025-03-19 15:16 | XMS_ITS | Encounter Summary ---
Author Organization [facility] Address [address] [place] [address] Care Team Providers Care Chimney Repairer Name Role Phone Sanjuanita Bhandari MD Primary Care Provider Un available Zehra Evans DO Primary Care Provider Unavaila Martha Barajas MD Primary Care Provider [phone] Encounter Details Date Type Department Care Team Description 10/27/2017 Pt. Non Urgent Medic al Question Medicine/Pediatrics - [address] [phone] Todd Mcclendon PA-C Social History Tobacco Use [...] L.P.N. - 10/28/2017 8:52 AM ESTFrom: Nuvia Vaelntine To: Todd Mcclendon PA-C Sent: 10/27/2017 5:04 [...] on filedocumented in this encounter Care Teams Chimney Repairer Relationship Specialty Start Date End Date Sanjuanita Bhandari MD PCP - General 09/26/07 03/25/22 Zehra Evans DO PCP - General Internal Medicine 03/26/22 07/05/24 Martha Hood MD [address] [place] [id number] PCP - General Internal Medicine 07/06/24 documented as of this encounter
--- OUTSIDE RECORDS SUMMARY | 2025-03-19 15:16 | XMS_ITS | Encounter Summary ---
Author Organization [facility] Address [address] [place] [address] Care Team Providers Care Insurance Verification Representative Name Role Phone Sanjuanita Bhandari MD Primary Care Provider Un available Zehra Evans DO Primary Care Provider Unavaila ble Martha Hood MD Primary Care Provider [phone] Encounter Details Date Type Department Care Team Description 12/24/2017 Car Changer Report Medical Records [address] [place] [address] Mary Bermudez MD Social History Tobacco Use [...] on filedocumented in this encounter Care Teams Insurance Verification Representative Relationship Specialty Start Date End Date Sanjuanita Bhandari MD PCP - General 09/26/07 03/25/22 Zehra Evans DO PCP - General Internal Medicine 03/26/22 07/05/24 Martha Hood MD [address] [place], [place] [id number] PCP - General Internal Medicine 07/06/24 documented as of this encounter
[2025-03-19 15:22] VITALS: BP 120/76; PULSE 94; TEMP 36.5; O2SAT 95; BMI 37.6
== END 2025-03-19 15:46 | disposition home or self-care (01) ==
LOC: HO.HMCFM 15:10
PROVIDERS: PCP Physician Assistant Medical; Visit Provider Physician Assistant Medical
DX: E78.00 Pure hypercholesterolemia, unspecified (principal); E66.9 Obesity, unspecified; M25.571 Pain in right ankle and joints of right foot; Z68.37 Body mass index [BMI] 37.0-37.9, adult; R79.89 Other specified abnormal findings of blood chemistry

== ENCOUNTER → 2025-03-19 15:10 | Outpatient (BNVA) | payer BC, SELFPAY | PROVIDERS: PCP Physician Assistant Medical; Visit Provider Physician Assistant Medical | DX: E78.00 Pure hypercholesterolemia, unspecified (principal); E66.9 Obesity, unspecified; Z68.37 Body mass index [BMI] 37.0-37.9, adult; M25.571 Pain in right ankle and joints of right foot; R79.89 Other specified abnormal findings of blood chemistry; Z79.899 Other long term (current) drug therapy | CPT/HCPCS: 96127 ==

== ENCOUNTER 2025-04-26 09:55 | Outpatient (REF) | payer BC, SELFPAY ==
--- OUTSIDE RECORDS SUMMARY | 2025-04-26 10:58 | XMS_ITS | Encounter Summary ---
Author Organization [facility] Address [address] [place] [address] Care Team Providers Care Town Planner Name Role Phone Sanjuanita Bhandari MD Primary Care Provider Un available Zehra Evans DO Primary Care Provider Unavaila Martha Barajas MD Primary Care Provider [phone] Reason for Visit * Reason Onset Date Comments Gi Outreach Colonoscopy 03/14/2021 Encounter Details Date Type Department Care Team Description 03/14/2021 Telephone Gastroenterology - [address] [place] [address] Lissette Luna MD [address] [place] [address] Gi Outreach Colonoscopy Social History Tobacco Use Types Packs/Day Years [...] encounter Miscellaneous Notes * Telephone Encounter - Ivon Castle - 03/14/2021 3:35 PM EDT Left message for patient to schedule screening colonoscopy with any provider documented in this encounter Plan of Treatment Not on file documented as of this encounter Visit Diagnoses Not on filedocumented in this encounter Care Teams Town Planner Relationship Specialty Start Date End Date Sanjuanita Bhandari MD PCP - General 09/26/07 03/25/22 Zehra Evans DO PCP - General Internal Medicine 03/26/22 07/05/24 Martha Hood MD [address] [place] [address] PCP - General Internal Medicine 07/06/24 documented as of this encounter
[2025-04-26 11:34] LABS: Alanine Aminotransferase 46 U/L (0-31); Amylase 36 U/L (28-100); Aspartate Amino Transferase 26 U/L (5-31); Lipase 25 U/L (8-78)
[2025-04-26 11:58] LABS: HBS Num1 0.68 mIU/mL (0-7.99); HBc Num1 0.14 S/CO (0.00-0.79); Hepatitis A Antibody IgM 0.22 Index (0-0.79); Hepatitis B Core Antibody Nonreactive (Nonreactive); Hepatitis B Surface Antigen Negative (Negative); ~HepC Num1 0.22 S/CO (0.00-0.79); ~Hepatitis A Antibody IgM Nonreactive (Nonreactive); ~Hepatitis B Surface Antibody NONREACTIVE (Nonreactive); ~Hepatitis C Antibody Nonreactive (Nonreactive)
[2025-04-26 12:01] LABS: Hepatitis A Antibody IgM 0.18 Index (0-0.79); ~Hepatitis A Antibody IgM Nonreactive (Nonreactive)
[2025-04-27 22:28] LABS: Immunoglobulin E 59 kU/L (<OR=114)
[2025-05-01 20:18] LABS: Lipoprotein A 327 nmol/L (<75)
== END 2025-04-26 09:56 | disposition home or self-care (01) ==
LOC: HO.WFDLDS 09:55
PROVIDERS: Allergy & Immunology; Visit Provider Physician Assistant Medical
DX: E78.00 Pure hypercholesterolemia, unspecified (principal); R79.89 Other specified abnormal findings of blood chemistry
CPT/HCPCS: 36415; 82150; 82785; 83520; 83690; 83695; 84450; 84460; 86704; 86706; 86709; 86803; 87340

== ENCOUNTER 2025-05-17 10:02 | Outpatient (REF) | payer BC, SELFPAY ==
--- NOTE | ~2025-05-17 | US_ITS ---
EXAMINATION: US ABDOMEN LIMITED WITH LIVER ELASTOGRAPHY HISTORY: R79.89 - Other specified abnormal findings of blood chemistry TECHNIQUE: Real-time grayscale ultrasound imaging of the right upper quadrant was performed and images were reviewed. COMPARISON: There are no prior studies available for comparison. FINDINGS: Liver: The right lobe of the liver measures 15.0 cm in size. The left lobe of the liver measures 12.9 cm in size. The liver demonstrates heterogeneous increased echotexture, consistent with steatosis. No focal mass or intrahepatic biliary ductal dilatation is identified. There is normal hepatopedal flow in the portal vein. Ultrasound elastography of the liver was performed with 10 separate measurements of the liver parenchyma with the patient in the supine position. Measurements were obtained approximately 2 cm below Tin's capsule and perpendicular to the capsule. The median shear wave velocity is 1.21 m/s. The interquartile range/median (IQR/median) is 0.16. Gallbladder and biliary tree: The gallbladder is unremarkable, without evidence of calculi, wall thickening, or pericholecystic fluid. There is no sonographic Levin sign. The common bile duct is normal in caliber measuring 4 mm. Right Kidney: The right kidney measures 11.2 cm in length. The right kidney is unremarkable, without evidence of masses, hydronephrosis, or calculi. Pancreas: The pancreatic head, neck, and body are unremarkable. The pancreatic tail is obscured by bowel gas. Abdominal aorta and inferior vena cava: The visualized portions of the abdominal aorta and inferior vena cava are normal in caliber. There is no free fluid in the right upper quadrant. US/US abdomen laughlin w elastography IMPRESSION: Hepatic steatosis. The median shear wave velocity in the liver is 1.21 m/s, corresponding to a median liver stiffness of 4.54 kPa. The IQR/median value is 0.16. This is indicative of a poor quality data set, and the estimated liver stiffness may be unreliable. Findings are indicative of a normal elastography value with a low likelihood of severe fibrosis or cirrhosis. REFERENCE: Society of Radiologists in Ultrasound Liver Stiffness Thresholds (2019): LIVER STIFFNESS THRESHOLDS: *Shear wave velocity less than 1.3 m/s (Liver Stiffness equal or less than 5 kPa): High probability of being normal. *Shear wave velocity less than 1.7 m/s (Liver Stiffness less than 9 kPa): In the absence of other known clinical signs, rules out compensated advanced chronic liver disease. *Shear wave velocity between 1.7-2.1 m/s (Liver Stiffness 9-13 kPa): Suggestive of compensated advanced chronic liver disease but need further test for confirmation. *Shear wave velocity between 2.1-2.4 m/s (Liver Stiffness 13-17 kPa): Rules in compensated advanced chronic liver disease. *Shear wave velocity greater than 2.4 m/s (Liver Stiffness over 17 kPa): Suggestive of clinically significant portal hypertension. QUALITY OF DATA SET: *IQR/Median value equal or less than 0.15 implies a quality data set. *IQR/Median value over 0.15 implies a poor quality data set. SIGNIFICANT CHANGE FROM PRIOR EXAM: Significant change if liver stiffness measurement is 10% or greater from prior exam. OTHER CONSIDERATIONS: The stage of liver fibrosis may be overestimated in the setting of acute hepatitis, liver inflammation, elevated liver function tests, hepatic vascular congestion, obstructive cholestasis, non-fasting state, and infiltrative diseases such as amyloidosis and lymphoma. In some patients with NAFLD, the liver stiffness thresholds for compensated advanced chronic liver disease may be lower. In causes other than viral hepatitis and NAFLD, liver stiffness thresholds are not well established. Electronically signed by: Mina Sanders MD 05/17/2025 10:52 AM EDT
--- OUTSIDE RECORDS SUMMARY | 2025-05-17 10:41 | XMS_ITS | Clinical Summary ---
Author Organization [facility] Address [address] [place] [address] Phone Care Team Providers Care Director Of Agriculture Name Role Phone Martha Hood MD Primary [...] TEETH EXTRACTION OTHER SURGICAL HISTORY 11/08/2004 PROCEDURE: [place] EXC PRTD PRIYA/PRTD GLND LAT LOBE W/O [...] of Health Screening 10/17/2022 COVID-19 Vaccine ( - season) 2024 09/19/2022, 03/31/2021, 03/03/2021 Influenza Vaccine (#1) 2025 , 01/12/2024, 09/19/2022, Additional history exists Cholesterol Screening (Lipid Panel) 07/20/2029 07/20/2024, 07/20/2024 DTaP,Tdap,and Td Vaccines (5 - Td or Tdap) 01/07/2033 01/07/2023, 04/11/2012, 10/29/2003, Additional history exists Hepatitis C Screening Completed 01/07/2023 HIB Vaccines Aged Out No longer eligi [...] Results * (ABNORMAL) Lipid panel (07/20/2024) Pathologist [facility] LDL/HDL Ratio 4 0 - 4 Triglycerides 144 0 - 150 mg/dL Cholesterol 225(A) 0 - 200 mg/dL HDL 65 >=40 mg/dL LDL Cholesterol 132(A) 0 - 100 mg/dL Blood Venous blood specimen / Unknown Historical Provider LAB BLOOD ORDERABLES Carolyn l Result * Hepatitis C Screening (01/07/2023) Pathologist [facility] Hepatitis C Screening Abstracted us Historical Provider HEALTH MAINTENANCE Final Result from Last 3 Months or Most Recently Relevant to Health Maintenance [place] [address] [place] [address] Care Teams Director Of Agriculture Relationship Specialty Start Date End Date Martha Hood MD [address] [place] [address] PCP - General 07/06/24
== END 2025-05-17 10:03 | disposition home or self-care (01) ==
LOC: HO.US 10:02
PROVIDERS: PCP Physician Assistant Medical; Visit Provider Physician Assistant Medical
DX: R79.89 Other specified abnormal findings of blood chemistry (principal)
CPT/HCPCS: 76705; 76981

== ENCOUNTER → 2025-05-17 10:05 | Outpatient (BNV) | payer BC, SELFPAY | PROVIDERS: PCP Physician Assistant Medical; Visit Provider Radiology Diagnostic Radiology | DX: K76.0 Fatty (change of) liver, not elsewhere classified (principal) | CPT/HCPCS: 76705; 76981 ==

== ENCOUNTER 2025-09-13 11:12 | Outpatient (AMB) | payer BC, SELFPAY ==
--- NOTE | 2025-09-13 11:15 | MHC.PC.OV ---
Vital Signs 09/13/25 11:20 Height 5 ft 2 in Weight 180 lb 2 oz BMI 32.9 BP 104/70 Blood Pressure Location Rt brachial Position Sitting Pulse 63 Pulse Source Pulse Oximeter Temp 98.5 F Temp Source Temporal Artery Scan Pulse Oximetry (%) 97 Oxygen Delivery Method Room Air Intake Visit Reasons: annual physical exam (reboooked dr not in) Intake Note: Nuvia presents in the office today for her annual physical. Allergies Seasonal Allergies Allergy (Verified 09/13/25 11:18) Watery eyes, runny nose Medication List - Last Reconciled 09/14/25 by JOVITA Crowley atorvastatin (Lipitor) 40 mg PO BEDTIME clobetasol 0.05% 1 appl topical .prn desoximetasone 0.25% 1 appl topical DAILY PRN docusate sodium (Colace) 100 mg PO BID PRN famotidine 20 mg PO BID omeprazole 20 mg PO DAILY ruxolitinib 1.5% (Opzelura) appl topical tirzepatide (weight loss) (Zepbound) 7.5 mg subcut QWEEK triamcinolone acetonide (Nasacort) 2 sprays intranasal DAILY Tobacco use date assessed: 09/13/25 Dental Screening Dental Screen Date: 09/13/25 Did you have a dental visit in the last 12 months?: Yes Did you have a dental problem in the last 6 months where you did not have access to dental care?: No Was dental information given to patient?: Patient has dentist HPI HPI Comments History of Present Illness Details This is a 55-year-old female with a past medical history of hyperlipidemia, seasonal allergies and obesity presenting for a physical exam. Patient has been of 30 years is leaving her. They are not going to proceed with divorce until her daughter is out of the house next April. She is seeing a therapist which is helping. She has good support from her friends. She is taking tirzepatide 7.5 mg weekly for weight loss. She tolerates it aside from constipation. Her insurance is going to stopped covering it in November, but she plans to pay [id number] for it. She has lost 25 lb since 03/19/2025. Atorvastatin increased from 20 to 40 mg for hyperlipidemia and Agatston coronary calcium score of 236. She has a strong family history of heart disease on her father's side of the family. Lipoprotein a was elevated. She does not smoke. She had a cortisone injection for her right ankle pain which resolved it so she is more active now. She has an appointment scheduled with [facility]. Denies chest pain and shortness of breath. She had a colonoscopy in October 2024, and she reports there were a few polyps, and she was told to repeat it in 5 years. Appointment with OBGYN is scheduled in January 2025. Patient is status post hysterectomy. Mammogram is up-to-date. She takes omeprazole every day for GERD. She had rebound symptoms when she tried to stop it, but she is concerned about long-term use. ROS: Constitutional: No unexplained weight loss, fever, chills, fatigue or night sweats. Eyes: No vision changes, blurry vision, double vision, eye pain, eye redness, eye discharge. ENT: No hearing loss, sneezing, congestion, runny nose or sore throat. Respiratory: No shortness of breath, cough or sputum production. Cardiovascular: No chest pain, chest pressure or chest discomfort. No palpitations or pedal edema. Gastrointestinal: No anorexia, nausea, vomiting or diarrhea. No abdominal pain or blood in stool. Genitourinary: No dysuria, hematuria, urinary frequency. Neurologic: No headache, dizziness, syncope, unilateral weakness, ataxia, numbness or tingling in the extremities. Musculoskeletal: No muscle pain, back pain, joint pain or swelling. Hematologic/Lymphatics: No bleeding or bruising. No painful lymph nodes. Skin: No rash or itching. Endocrine: No cold or heat intolerance. No polyuria or polydipsia. Psychiatric: No depression or HI/SI. Physical exam: Constitutional: Alert, in no distress. Head: Normocephalic. Eyes: Pupils are equal, round and reactive to light. Extraocular muscles intact. Ear, Nose and Throat: Canals clear. TMs normal. Normal nasal mucosa. No nasal discharge. No oral lesions. Neck: Supple, Full range of motion. No lymphadenopathy. No palpable thyroid masses. Respiratory: Clear to auscultation. Cardiovascular: S1 S2 regular. No murmurs. No carotid bruits. Gastrointestinal: Abdomen soft, non-tender, non-distended. Normal bowel sounds. No palpable masses. Neurologic: No focal neurological deficits. Symmetric patellar reflexes. Moves all extremities spontaneously. Sensation intact bilaterally. Skin: No rashes Musculoskeletal: No gross deformities. Extremities: Warm and well perfused. No clubbing, cyanosis or edema. Intact peripheral pulses bilaterally. Psychiatric: Normal mood and affect [facility] Medical History (Updated 09/14/25 @ 09:00 by JOVITA Crowley) Routine physical examination Hepatic steatosis Elevated lipoprotein A level Family history of cardiovascular disease LFT elevation Colon polyps GERD (gastroesophageal reflux disease) Obesity (BMI 35.0-39.9 without comorbidity) Right ankle pain Pure hypercholesterolemia Screening for cardiovascular condition Surgical History (Updated 12/18/24 @ 12:11 by Coco Teresa [facility]) H/O total hysterectomy with bilateral salpingo-oophorectomy (BSO) (~2017) History of wisdom tooth extraction Family History (Reviewed 09/13/25 @ 11:20 by Graciela Lowe [facility]) Mother Ovarian cancer Sister Cervical cancer Paternal Grandfather Diabetes Maternal Grandmother Heart attack Maternal Grandfather Heart attack MRSA infection Maternal Grandmother Colon cancer Father Congestive heart failure Social History (Updated 09/13/25 @ 11:20 by Graciela Lowe [facility]) Household Members: Spouse Housing: House Alcohol intake: current Alcohol intake frequency: a few times a week Alcohol type: beer, wine and hard liquor Patient Tobacco Use Status: Never used Tobacco e-Cigarette/Vaping Use: Never Used Second Hand Smoke Exposure: No service: No Current occupational status: employed 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 1. Little interest or pleasure in doing things: not at all 2. Feeling down, depressed, or hopeless: not at all 3. Trouble falling or staying asleep, or sleeping too much: not at all 4. Feeling tired or having little energy: not at all 5. Poor appetite or overeating: not at all 6. Feeling bad about yourself - or that you are a failure or have let yourself or your family down: not at all 7. Trouble concentrating on things, such as reading the newspaper or watching television: not at all 8. Moving or speaking so slowly that other people could have noticed. Or the opposite - being so fidgety or restless that you have been moving around a lot more than usual: not at all 9. Thoughts that you would be better off or of hurting yourself in some way: not at all Total score: 0 Depression Screening Interpretation: Negative Depression Screening Done: Yes 50148 - PHQ-9 Billing: Yes Source: Developed by Drs. Mina Collado, Renata Andre, Faraz Armijo and colleagues, with an educational adeola from [employer]. Thrive Questionnaire Date Thrive assessed: 09/13/25 I am a: Patient What is your living situation today?: I have a steady place to live Within the past 12 months, did the food you bought not last and you didn't have the money to get more?: Never true Within the past 12 months, did you worry whether your food would run out before you got money to buy more?: Never true Do you have trouble paying for medicines?: No Do you have trouble getting transportation to medical appointments?: No Do you have trouble paying your heating and electricity bill?: No Do you have trouble taking care of your child, family member or friend?: No Do you have trouble with day-to-day activities such as bathing, preparing meals, shopping, managing finances, etc.?: No Are you currently unemployed and looking for a job?: No Are you interested in more education?: No Please select the resources that you would like help with: None Currently or been in a relationship where the following occur: No concerns reported THRIVE Score: 0 AUDIT C Alcohol Use Questionnaire (AUDIT-C) 1. How often do you have a drink containing alcohol?: Never 3. How often do you have six or more drinks on one occasion?: Never Total Score: 0 DESHAWN-7 AMB Questionnaire DESHAWN-7 Date DESHAWN - 7 assessed: 09/13/25 Feeling nervous, anxious, or on edge: 0 = Not at all Not being able to stop or control worryin = Not at all Worrying too much about different things: 0 = Not at all Trouble relaxin = Not at all Being so restless that it is hard to sit still: 0 = Not at all Becoming easily annoyed or irritable: 0 = Not at all Feeling afraid as if something awful might happen: 0 = Not at all Total DESHAWN-7 score (0-4 normal; 5-9 mild; 10-14 moderate; 15-21 severe): 0 Source: Developed by Drs. Mina Collado, Renata Andre, Faraz Armijo and colleagues, with an educational adeola from [employer]. DESHAWN-7 Assessment Billing DESHAWN-7 Assessment Tool: DESHAWN-7 Assessment 33006 Physical exam (Primary Care) Vital Signs: Last Vital Signs Temp 98.5 F 09/13/25 11:20 Pulse 63 09/13/25 11:20 BP 104/70 09/13/25 11:20 Pulse Ox 97 09/13/25 11:20 Oxygen Delivery Method Room Air 09/13/25 11:20 BMI result Body Mass Index 32.9 Tobacco/Smoking Status: Tobacco use Status Tobacco use date assessed 09/13/25 09/13/25 11:26 Patient Tobacco Use Status Never used Tobacco 09/13/25 11:20 e-Cigarette/Vaping Use Never Used 09/13/25 11:20 PHQ-9: PHQ-9 Score PHQ-9: Total score 0 09/13/25 12:21 Depression Screening Interpretation: Negative Thrive Assessment: Date of Thrive Assessment Date Thrive assessed 09/13/25 09/13/25 11:17 Currently or been in a relationship where the following occur: No concerns reported Office Procedures Flu Questionnaire Does the patient have a severe egg allergy?: No Does the patient have severe life threatening allergies?: No Does the patient have a fever or illness today?: No Has the patient ever had Guillain-[place] Syndrome?: No Has the patient ever had any past reaction to a flu shot?: No Immunizations Fluarix 7820-1919 (PF) 45 mcg (15 mcg x 3)/0.5 mL IM syringe Performing Provider: JOVITA Crowley Performing Location: [facility] Administered by: Graciela Lowe CMA on 09/13/25 12:24 Dose Route Admin Location Dispensed Lot Number Expiration Date NDC Primer Charger 0.5 mL IM Left Deltoid 0.5 mL [id number] 05/07/26 [id number] [employer] VIS Given Date VIS Provided VIS Publication Date 09/13/25 Single Vaccine 24 Eligibility Eligibility Date Funding Source Not [facility] Eligible 09/13/25 Private Coding Level of Care Code Est Pt Prev Care 40-64y(48416) Diagnoses Routine physical examination Z00.00 Pure hypercholesterolemia E78.00 Family history of cardiovascular disease Z82.49 Elevated lipoprotein A level E78.41 Obesity (BMI 35.0-39.9 without comorbidity) E66.9 Gastroesophageal reflux disease without esophagitis K21.9 Esophagitis presence: without esophagitis Additional Codes DESHAWN-7 Assessment Billing - DESHAWN-7 Assessment Tool: DESHAWN-7 Assessment 24641 ([id number]) PHQ-9 - 20762 - PHQ-9 Billing: Yes ([id number]) Assessment & Plan Assessment & Plan (1) Routine physical examination: Code(s): Z00.00 - Encounter for general adult medical examination without abnormal findings Category: Medical (2) Pure hypercholesterolemia: Code(s): E78.00 - Pure hypercholesterolemia, unspecified Category: Medical (3) Family history of cardiovascular disease: Code(s): Z82.49 - Family history of ischemic heart disease and other diseases of the circulatory system Category: Medical (4) Elevated lipoprotein A level: Code(s): E78.41 - Elevated Lipoprotein(a) Category: Medical (5) Obesity (BMI 35.0-39.9 without comorbidity): Code(s): E66.9 - Obesity, unspecified Category: Medical (6) GERD (gastroesophageal reflux disease): Code(s): K21.9 - Gastro-esophageal reflux disease without esophagitis Category: Medical Qualifiers: Esophagitis presence: without esophagitis Qualified Code(s): K21.9 - Gastro-esophageal reflux disease without esophagitis Plan Patient is seen today for a routine physical. As part of this visit we reviewed the following issues, which are considered and essential part of preventative health in this age group: - Breast Cancer screening - Annual Medical Instrument Technician exam - Screening for colon cancer - Blood pressure screening - Cholesterol screening - Osteoporosis prevention including calcium/vitamin D intake, weight bearing exercise & smoking cessation - Nutritional and exercise counseling - Counseling of injury prevention including fire prevention, smoke alarms and seat belt usage - Screening for depression - Recommendations about immunizations - Recommendation of an eye exam Patient given instructions to start famotidine 20 mg twice daily and try alternating omeprazole 20 mg every other day and then reduce omeprazole to every 3rd day or as needed. Discussed that if she has recurrent reflux to resume omeprazole 20 mg daily. Reviewed risks of uncontrolled reflux including Barretts esophagus, esophageal stricture. She is working on weight loss. She avoids triggers for GERD. She will continue atorvastatin. She will repeat a fasting lipid profile. She has an upcoming appointment with Cardiology. She will try Colace daily and MiraLax as needed for constipation associated with GLP 1. She wants to continue the medication which has been affected for weight loss. She does plan to titrate the dose to 10 mg. Advised patient if she does not tolerate it she can reduce it to 7.5 mg weekly again. She is planning to pay [id number] after November when her insurance stopped covering it. Follow up in 6 months. Orders: Orders Influenza [id number] Immunization 09/13/25 Z23 - Encounter for immunization Medications: New polyethylene glycol 3350 (Miralax) 17 grams PO DAILY PRN 510 grams 5RF constipation famotidine 20 mg PO BID 180 tabs 3RF docusate sodium (Colace) 100 mg PO BID PRN 180 caps 3RF constipation Changed From Zepbound (tirzepatide (weight loss)) for 4 weeks 2.5 mg (0.5 mL) subcut QWEEK 2 mL 0RF NS To tirzepatide (weight loss) (Zepbound) for 4 weeks 7.5 mg subcut QWEEK
[2025-09-13 11:20] VITALS: BP 104/70; PULSE 63; TEMP 36.9; O2SAT 97; BMI 32.9
--- OUTSIDE RECORDS SUMMARY | 2025-09-13 13:55 | XMS_ITS ---
[facility] Name [facility] Organization [facility] Care Team Organization Name Specialty Phone Email Start Date End Da te [facility] Zehra Evans DO Primary Care 03/15/202306/08
--- OUTSIDE RECORDS SUMMARY | 2025-09-13 13:56 | XMS_ITS | Clinical Summary ---
Author Organization [facility] Address [address] [place] [address] Phone Care Team Providers Care Table Keeper Name Role Phone Martha Hood MD Primary [...] S/P hysterectomy with oophorectomy 07/16/2017 10/25/2024 Immunizations Immunization Administration Dates Next Due Influenza Quadravalent, MDCK [...] TEETH EXTRACTION OTHER SURGICAL HISTORY 11/08/2004 PROCEDURE: IN EXC PRTD PRIYA/PRTD GLND LAT LOBE W/O [...] LIVER DZ Other: Paternal Grandmother 70'S , ?[place] Diabetes Sister 1 Other: cancer cerv Sister [...] Last Done Comments Breast Cancer Screening 1970 Colorectal Cancer Screening: Colonoscopy 1970 Hepatitis B Vaccines (1 of 3 - 19+ 3-dose series) 1989 Pneumococcal Vaccine: 50+ Years (1 of 1 - PCV) 2020 Zoster Vaccines (1 of 2) 2020 HIV Screening 10/17/2022 Social Influencers of Health Screening 10/17/2022 Depression Screening 11/08/2024 COVID-19 Vaccine ( - season) 2025 09/19/2022, 03/31/2021, 03/03/2021 Influenza Vaccine (#1) 2025 , 01/12/2024, 09/19/2022, Additional history exists Cholesterol Screening (Lipid Panel) 07/20/2029 07/20/2024, 07/20/2024 DTaP,Tdap,and Td Vaccines (5 - Td or Tdap) 01/07/2033 01/07/2023, 04/11/2012, 10/29/2003, Additional history exists RSV Immunization Adult Patients (1 - 1-dose 75+ series) 2045 Hepatitis C Screening Completed 01/07/2023 HIB Vaccines [...] Results * (ABNORMAL) Lipid panel (07/20/2024) Pathologist [facility] LDL/HDL Ratio 4 0 - 4 Triglycerides 144 0 - 150 mg/dL Cholesterol 225(A) 0 - 200 mg/dL HDL 65 >=40 mg/dL LDL Cholesterol 132(A) 0 - 100 mg/dL Blood Venous blood specimen / Unknown us Historical Provider LAB BLOOD ORDERABLES Carolyn l Result * Hepatitis C Screening (01/07/2023) Pathologist [facility] Hepatitis C Screening Abstracted us Historical Provider HEALTH MAINTENANCE Final Result from Last 3 Months or Most Recently Relevant to Health Maintenance Insurance [facility] Care Teams Table Keeper Relationship Specialty Start Date End Date Martha Hood MD [address] [place] [address] PCP - General 07/06/24
== END 2025-09-13 12:22 | disposition home or self-care (01) ==
LOC: HO.HMCFM 11:13
PROVIDERS: PCP Physician Assistant Medical; Visit Provider Physician Assistant Medical
DX: Z23 Encounter for immunization (principal)

== ENCOUNTER → 2025-09-13 11:12 | Outpatient (BNVA) | payer BC, SELFPAY | PROVIDERS: PCP Physician Assistant Medical; Visit Provider Physician Assistant Medical | DX: Z00.00 Encounter for general adult medical examination without abnormal findings (principal); Z23 Encounter for immunization; E78.00 Pure hypercholesterolemia, unspecified; E78.41 Elevated Lipoprotein(a); E66.9 Obesity, unspecified; Z68.32 Body mass index [BMI] 32.0-32.9, adult; K21.9 Gastro-esophageal reflux disease without esophagitis; Z79.899 Other long term (current) drug therapy; Z82.49 Family history of ischemic heart disease and other diseases of the circulatory system; Z13.31 Encounter for screening for depression; Z13.39 Encounter for screening examination for other mental health and behavioral disorders | CPT/HCPCS: 90471; 90656; 96127 ==

== ENCOUNTER 2025-09-18 08:04 | Outpatient (REF) | payer BC, SELFPAY ==
--- OUTSIDE RECORDS SUMMARY | 2025-09-18 08:07 | XMS_ITS | Clinical Summary ---
Author Organization [facility] Address [address] [place] [address] Phone Care Team Providers Care Lawn Care Professional Name Role Phone Martha Hood MD Primary [...] TEETH EXTRACTION OTHER SURGICAL HISTORY 11/08/2004 PROCEDURE: VA EXC PRTD PRIYA/PRTD GLND LAT LOBE W/O [...] LIVER DZ Other: Paternal Grandmother 70'S , ?[place] Diabetes Sister 1 Other: cancer cerv Sister [...] * (ABNORMAL) Lipid panel (07/20/2024) Pathologist [facility] LDL/HDL Ratio 4 0 - 4 Triglycerides 144 0 - 150 mg/dL Cholesterol 225(A) 0 - 200 mg/dL HDL 65 >=40 mg/dL LDL Cholesterol 132(A) 0 - 100 mg/dL Blood Venous blood specimen / Unknown us Historical Provider LAB BLOOD ORDERABLES Carolyn l Result * Hepatitis C Screening (01/07/2023) Pathologist [facility] Hepatitis C Screening Abstracted us Historical Provider HEALTH MAINTENANCE Final Result from Last 3 Months or Most Recently Relevant to Health Maintenance Insurance [facility] Care Teams Lawn Care Professional Relationship Specialty Start Date End Date Martha Hood MD [address] [place] [address] PCP - General 07/06/24
[2025-09-18 11:32] LABS: Alanine Aminotransferase 26 U/L (0-31); Aspartate Amino Transferase 23 U/L (5-31); Cholesterol 195 mg/dL (<200); HDL Cholesterol 46 mg/dL (>40); Triglycerides 99 mg/dL (<150)
== END 2025-09-18 08:05 | disposition home or self-care (01) ==
LOC: HO.WFDLDS 08:04
PROVIDERS: Visit Provider Physician Assistant Medical
DX: I25.10 Atherosclerotic heart disease of native coronary artery without angina pectoris (principal); E78.00 Pure hypercholesterolemia, unspecified; E78.5 Hyperlipidemia, unspecified
CPT/HCPCS: 36415; 80061; 84450; 84460; 93005

== ENCOUNTER 2025-09-18 15:05 | Outpatient (AMB) | payer BC, SELFPAY ==
--- NOTE | 2025-09-18 15:06 | A.OFFVIS_ITS ---
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/ family hx ASHD Intake Note: New patient dx hpercholesterol and fx ASHD with elevated calcium score Studio Grip Required: No Allergies Seasonal Allergies Allergy (Verified 09/13/25 11:18) Watery eyes, runny nose Medication List - Last Reconciled 09/18/25 by Siddhartha Meyer MD atorvastatin (Lipitor) 40 mg PO BEDTIME clobetasol 0.05% 1 appl topical .prn desoximetasone 0.25% 1 appl topical DAILY PRN docusate sodium (Colace) 100 mg PO BID PRN famotidine 20 mg PO BID omeprazole 20 mg PO DAILY polyethylene glycol 3350 (Miralax) 17 grams PO DAILY PRN ruxolitinib 1.5% (Opzelura) appl topical tirzepatide (weight loss) (Zepbound) 7.5 mg subcut QWEEK triamcinolone acetonide (Nasacort) 2 sprays intranasal DAILY HPI Comments Details: Thank you for referring Kelsey in cardiology consultation today for management of her hyperlipidemia as well as noted elevated coronary calcium score on recent dedicated CTA as well as strong family history for premature coronary artery disease. She reports that her father had 1st myocardial infarction at age 38 and subsequently had coronary artery bypass grafting and myocardial infarction every 10 years. He was managed for hyperlipidemia. He is a nonsmoker. Patient also says multiple of his siblings have premature coronary artery disease as well. Patient is noted to have mild hyperlipidemia with LDL cholesterol of 127. She is currently on GLP 1 antagonist and says that she has lost about 30 lb. She is also starting to exercise more although she says she is very afraid of walking on treadmill as she had fallen down at fractured ankle in the past. She continues to have limitations related to that. She subsequently had a workup which showed markedly elevated lipoprotein a in his 315 range. She subsequently had a coronary calcium score which showed elevated coronary calcium score of 236 with predominantly with coronary calcium score in the RCA at 140. Patient subsequently had increase in his atorvastatin from 20 mg to 40 mg which has not lead to any significant reduction in her LDL cholesterol which remains at 130. Patient denies any significant exertional symptoms although she has limited exercise activity due to her ankle issues. She denies any lightheadedness, syncope. No prolonged palpitation irregular heartbeat. She is referred here for further management of her coronary atherosclerosis [facility] Medical History CAD (coronary artery disease) Routine physical examination Hepatic steatosis Elevated lipoprotein A level Family history of cardiovascular disease LFT elevation Colon polyps GERD (gastroesophageal reflux disease) Obesity (BMI 35.0-39.9 without comorbidity) Right ankle pain Pure hypercholesterolemia Screening for cardiovascular condition Surgical History H/O total hysterectomy with bilateral salpingo-oophorectomy (BSO) (~2017) History of wisdom tooth extraction Family History Mother Ovarian cancer Sister Cervical cancer Paternal Grandfather Diabetes Maternal Grandmother Heart attack Maternal Grandfather Heart attack MRSA infection Maternal Grandmother Colon cancer Father Congestive heart failure CAD (coronary artery disease) Social History Household Members: Spouse Housing: House Alcohol intake: current Alcohol intake frequency: a few times a week Alcohol type: beer, wine and hard liquor Patient Tobacco Use Status: Never used Tobacco e-Cigarette/Vaping Use: Never Used Second Hand Smoke Exposure: No service: No Current occupational status: employed Current occupation: [employer] Cognitive needs: No Hearing needs: No Vision needs: Yes Review of Systems Const Denies chills, Denies daytime sleepiness, Denies fatigue, Denies fever(s), Denies frequent falls, Denies poor appetite, Denies snoring, Denies stops breathing during sleep, Denies weakness, Denies weight gain and Reports weight loss Eyes Denies loss of vision ENT Denies dizziness and Denies hearing loss Card Denies chest pain, Denies claudication, Denies leg edema, Denies lightheadedness, Denies palpitations, Denies dyspnea, Denies dyspnea on exertion and Denies orthopnea Resp Denies cough, Denies excessive phlegm production, Denies dyspnea, Denies dyspnea on exertion, Denies snoring and Denies wheezing GI Denies abdominal pain, Denies hematochezia, Denies change in bowel habits, Denies nausea and Denies vomiting Denies urinary frequency and Denies dysuria Musc Denies arthralgias, Denies muscle weakness and Denies numbness Skin/Breast Denies nail changes and Denies rash Neuro Denies Abnormal speech present, Denies dizziness, Denies frequent falls, Denies loss of vision, Denies memory loss, Denies numbness and Denies weakness Psych Denies depression and Denies memory loss Endo Denies fatigue and Denies palpitations Vivek/Lymph Reports easy bruising and Reports other (anemia) Aller/Immun Denies wheezing Physical Exam Vital Signs: Last Vital Signs Pulse 82 09/18/25 15:07 BP 120/74 09/18/25 15:07 BMI result Body Mass Index 32.7 Const General: cooperative, comfortable, no acute distress, alert, awake and Physically active Nutritional Appearance: obese Orientation/consciousness: patient oriented x3 Limitations: no limitations HEENT Head: Yes normocephalic and Yes atraumatic Neck Neck: Yes trachea midline, Yes supple and Yes no JVD Carotids: no bruits Resp Effort & Inspection: normal respiratory effort Auscultation: clear to auscultation bilaterally Cardio Jugular venous distension: no JVD Rate: regular rate Rhythm: regular rhythm Heart sounds: S1 normal heart sound present, S2 normal heart sound present, no click, no gallops and no murmurs GI Auscultation: normal bowel sounds Skin General skin exam: no rashes or lesions noted Neuro General: patient oriented x3 and no focal motor deficits Speech: No Abnormal speech present Extrem General: Yes no clubbing, cyanosis or edema Psych Appearance: grossly normal Office Procedures EKG Details: EKG shows normal sinus rhythm with poor R-wave progression most likely lead placement and body habitus [id number], Complete Assessment & Plan Assessment & Plan (1) CAD (coronary artery disease): Comment: Elevated coronary calcium score, predominantly in RCA suggestive of underlying coronary atherosclerosis Code(s): I25.10 - Atherosclerotic heart disease of [place] coronary artery without angina pectoris Category: Medical Plan: Coronary artery disease in his middle-aged woman with presence of coronary calcium in all 3 coronary vessels predominantly in RCA. She does not have any active symptoms although he has limited exercise activity. She needs to rule out any asymptomatic evidence of myocardial ischemia. Because of limitation exercise would suggest a vasodilating myocardial perfusion imaging to assess for myocardial ischemia which may further guide treatment options including invasive cardiac catheterization if so required. Also suggest an echocardiogram to evaluate LV systolic function as well as to evaluate for any regional wall motion abnormality. Meanwhile her coronary atherosclerosis clearly is willing to her hyperlipidemia predominantly independent risk factors of significantly elevated lipoprotein a. She has had minimal effect of her statin therapy. That has good clinical data as to PCSK9 inhibitor therapy improving both LDL cholesterol levels and more importantly also reducing lipoprotein a levels. Would therefore take the liberty to prescribe her Repatha to further modify her lipid and reduce her future risk of atherosclerotic events. This was discussed with her. Follow-up lipid panel in 3 months time. Also recommend low-dose aspirin therapy. Importance of regular physical activity and weight loss was discussed. She is enthusiastic about it and currently participating in the same. Will follow up in the clinic after above-mentioned test and lipid panel. Thank you for allowing me to partake in her care Orders: Orders NM cardiolite stress test 2 Weeks I25.10 - Atherosclerotic heart disease of [place] coronary artery without angina pectoris, R07.9 - Chest pain, unspecified Lipid Panel 3 Months I25.10 - Atherosclerotic heart disease of [place] coronary artery without angina pectoris CA lexiscan stress w marcy Today I25.10 - Atherosclerotic heart disease of [place] coronary artery without angina pectoris CA echo transthoracic complete Today I25.10 - Atherosclerotic heart disease of [place] coronary artery without angina pectoris Lipoprotein A 3 Months I25.10 - Atherosclerotic heart disease of [place] coronary artery without angina pectoris Medications: New evolocumab (Repatha SureClick) 140 mg subcut Q2W 2 mL 5RF I25.10 - Atherosclerotic heart disease of [place] coronary artery without angina pectoris Coding Level of Care Code New Pt Level 4 (68773) Complex EM visit Add On G2211 Diagnoses CAD (coronary artery disease) I25.10 CPT Codes EKG - CPT: 92633-[id number], Complete ([id number])
[2025-09-18 15:07] VITALS: BP 120/74; PULSE 82; BMI 32.7
--- OUTSIDE RECORDS SUMMARY | 2025-09-18 16:50 | XMS_ITS | Clinical Summary ---
Author Organization [facility] Address [address] [place] [address] Phone Care Team Providers Care Qa Test Analyst Name Role Phone Martha Hood MD Primary Care Provider [phone] Allergies No known active allergies Medications atorvastatin [...] * (ABNORMAL) Lipid panel (07/20/2024) Pathologist [facility] LDL/HDL Ratio 4 0 - 4 Triglycerides 144 0 - 150 mg/dL Cholesterol 225(A) 0 - 200 mg/dL HDL 65 >=40 mg/dL LDL Cholesterol 132(A) 0 - 100 mg/dL Blood Venous blood specimen / Unknown us Historical Provider LAB BLOOD ORDERABLES Carolyn l Result * Hepatitis C Screening (01/07/2023) Pathologist [facility] Hepatitis C Screening Abstracted us Historical Provider HEALTH MAINTENANCE Final Result from Last 3 Months or Most Recently Relevant to Health Maintenance Insurance [facility] Care Teams Qa Test Analyst Relationship Specialty Start Date End Date Martha Hood MD [address] [place] [address] PCP - General 07/06/24
== END 2025-09-18 15:45 | disposition home or self-care (01) ==
LOC: HO.HCS 15:06
PROVIDERS: PCP Physician Assistant Medical; Visit Provider Internal Medicine Cardiovascular Disease
DX: I25.10 Atherosclerotic heart disease of native coronary artery without angina pectoris (principal)
CPT/HCPCS: 93010; 99204

== ENCOUNTER → 2025-10-25 15:10 | Outpatient (REF) | payer BC, SELFPAY ==
--- OUTSIDE RECORDS SUMMARY | 2025-10-25 19:12 | XMS_ITS | Clinical Summary ---
Author Organization [facility] Address [address] [place] [address] Phone Care Team Providers Care Virtualization Engineer Name Role Phone Martha Hood MD Primary [...] TEETH EXTRACTION OTHER SURGICAL HISTORY 11/08/2004 PROCEDURE: OH EXC PRTD PRIYA/PRTD GLND LAT LOBE W/O [...] LIVER DZ Other: Paternal Grandmother 70'S , ?[place] Diabetes Sister 1 Other: cancer cerv Sister [...] on file Sexual Orientation Not on file Last Filed Vital Signs Vital Sign Reading [...] Hepatitis C Screening (01/07/2023) Pathologist [facility] Hepatitis C Screening Abstracted us Historical Provider HEALTH MAINTENANCE Final Result from Last 3 Months or Most Recently Relevant to Health Maintenance Insurance [facility] Care Teams Virtualization Engineer Relationship Specialty Start Date End Date Martha Hood MD [address] [place] [address] PCP - General 07/06/24
== END ==
LOC: HO.CARD 15:10
PROVIDERS: PCP Physician Assistant Medical; Visit Provider Internal Medicine Cardiovascular Disease
DX: I25.10 Atherosclerotic heart disease of native coronary artery without angina pectoris (principal)
CPT/HCPCS: 93306

== ENCOUNTER → 2025-10-25 15:12 | Outpatient (BNV) | payer BC, SELFPAY | PROVIDERS: PCP Physician Assistant Medical; Visit Provider Internal Medicine Cardiovascular Disease | DX: I77.810 Thoracic aortic ectasia (principal); I35.8 Other nonrheumatic aortic valve disorders | CPT/HCPCS: 93306 ==

== ENCOUNTER → 2025-10-30 08:29 | Outpatient (REF) | payer BC, SELFPAY ==
--- NOTE | ~2025-10-30 | NM_ITS ---
Lexiscan Myocardial perfusion study Indication: Chest pain to evaluate for myocardial ischemia Technique: The patient was brought in for a Lexiscan perfusion study on 10/30/2025 and was injected 0.4 mg of Lexiscan intravenously. Within a minute of this injection 25 mCi of sestamibi was given intravenously. Images were obtained using the SPECT gamma camera interlaced with the gating device. Images were obtained in supine position. Resting perfusion study was performed on 10/31/2025. Patient was administered 25 mCi of sestamibi intravenously at rest. Images were then obtained in supine position. Images were processed with the software and compared side to side in short axis, horizontal long axis and vertical long axis views. Images obtained without without CT attenuation. Total DLP 93 mGy-cm. Findings: The stress perfusion study showed nonattenuated images show normal uptake ordered images in all segments of the LV myocardium. Attenuated corrected images show mildly reduced uptake in the apex of the LV myocardium. The gated study shows normal LV systolic function with calculated LVEF of 63%. LV cavity is normal in size. The gated study shows normal systolic wall thickening and contraction of segments. Resting study shows no change in perfusion pattern compared to stress perfusion. Gating at rest reveals normal systolic wall motion with ejection fraction at 72%. The findings are consistent with normal myocardial perfusion. NM/NM cardiolite stress test Impression: 1. Myocardial perfusion imaging study shows normal myocardial perfusion 2. Gated LVEF is 63% 3. Transient ischemic dilatation not present Nondiagnostic changes on EKG. Electronically signed by: Siddhartha Meyer MD 10/31/2025 02:49 PM [facility]
--- OUTSIDE RECORDS SUMMARY | 2025-10-30 08:37 | XMS_ITS | Clinical Summary ---
Author Organization [facility] Address [address] [place] [address] Phone Care Team Providers Care Senior Net Architect Name Role Phone Martha Hood MD Primary [...] TEETH EXTRACTION OTHER SURGICAL HISTORY 11/08/2004 PROCEDURE: NC EXC PRTD PRIYA/PRTD GLND LAT LOBE W/O [...] LIVER DZ Other: Paternal Grandmother 70'S , ?[place] Diabetes Sister 1 Other: cancer cerv Sister [...] Hepatitis C Screening (01/07/2023) Pathologist [facility] Hepatitis C Screening Abstracted us Historical Provider HEALTH MAINTENANCE Final Result from Last 3 Months or Most Recently Relevant to Health Maintenance Insurance [facility] Care Teams Senior Net Architect Relationship Specialty Start Date End Date Martha Hood MD [address] [place] [address] PCP - General 07/06/24
--- NOTE | 2025-10-30 10:59 | CA_ITS ---
Acquisition Time: 2025-10-30 08:30:17 Total Exercise Time: 00:02:00 Test Indications: CHEST PAIN Medications: Protocol: LEXISCAN Max HR: 122 BPM 73% of Pred: 165 BPM Max BP: 114/76 mmHG Max Work Load: 1.0 METS Pharmacological stress test with Lexiscan while pt swings her legs in chair, with reports of dizziness, without any arrythmias, with normotensive response to injection. Nondiagnostic EKG for ischemia. In recovery, pt treated with IVP Aminophylline 75 mg to reverse Lexiscan after which pt feeling back to baseline. Nuclear images pending. Test reviewed with Dr. Meyer. Referred By: Siddhartha Meyer Electronically Signed By: Derick Gale
== END ==
LOC: HO.CARD 08:29
PROVIDERS: PCP Physician Assistant Medical; Visit Provider Internal Medicine Cardiovascular Disease
DX: I25.10 Atherosclerotic heart disease of native coronary artery without angina pectoris (principal); R07.9 Chest pain, unspecified
CPT/HCPCS: 78452; 93017; A9500; J0280; J2785

== ENCOUNTER → 2025-10-30 10:59 | Outpatient (BNV) | payer BC, SELFPAY | PROVIDERS: PCP Physician Assistant Medical | DX: R07.9 Chest pain, unspecified (principal) | CPT/HCPCS: 78452; 93016; 93018 ==